=== PATIENT | male | born 1935 | race Caucasian/White ===

== ENCOUNTER 2017-11-11 20:45 | Inpatient (IN) | payer OTHER ==
[~2017-11-11] VITALS: Ht 185.4 cm; Wt 90.0 kg
[~2017-11-11 20:45] MED LIST: ACET325 PO; ALBU2.5V5 NEB; ASCO500 PO; ATOR20 PO; Advair Hfa 115-12 GM INH; BUDE6HFA INH; CALCIT950 PO; CIPR500 PO; CLOP75 PO; COMBIVENT RESPIM4 GM INH; FLUSAL2505 IH; HYDACE5 PO; MULTI VITAMIN1 EACH PO; NATTOKINASE PO; ONDA4 PO; OXYACE5T PO; PHENA200 PO; PRED10; PRED10 PO; Percocet 5-3251 EACH PO; Prednisone20 MG PO; SULTRIDS PO; TAMS.4ER PO; TOCO400 PO; Zofran Odt4 MG SL; [UNRECOGNIZED DRUG - OTHER] PO; [UNRECOGNIZED DRUG - REMARK]
[2017-11-11 23:22] LABS: BASOPHILS ABSOLUTE AUTO 0.01 K/mm3 (0.00-0.23); BASOPHILS PERCENT AUTO 0 % (0-2); EOSINOPHILS ABSOLUTE AUTO 1.24 K/mm3 (0.00-0.68); EOSINOPHILS PERCENT AUTO 10 % (0-6); Hematocrit 35.9 % (37.0-53.0); Hemoglobin 12.5 g/dL (13.5-17.5); IMMATURE GRAN ABSOLUTE AUTO 0.06 K/mm3 (0.00-0.10); IMMATURE GRAN PERCENT AUTO 1 % (0-1); LYMPHOCYTES ABSOLUTE AUTO 0.81 K/mm3 (0.84-5.20); LYMPHOCYTES PERCENT AUTO 6 % (21-46); MONOCYTES ABSOLUTE AUTO 0.53 K/mm3 (0.16-1.47); MONOCYTES PERCENT AUTO 4 % (4-13); Mean Corpuscular HGB 33.5 pg (26.0-34.0); Mean Corpuscular HGB Conc 34.8 g/dL (31.5-36.5); Mean Corpuscular Volume 96 fL (80-100); Mean Platelet Volume 9.3 fL (9.1-12.4); NEUTROPHILS ABSOLUTE AUTO 10.29 K/mm3 (1.96-9.15); NEUTROPHILS PERCENT AUTO 79 % (41-73); Platelet Count 169 K/mm3 (150-400); RDW Coefficient Variation 13.7 % (11.7-14.2); RDW Standard Deviation 48.9 fL (35.1-46.3); Red Blood Cell Count 3.73 M/mm3 (4.30-5.90); White Blood Cell Count 12.94 K/mm3 (4.00-11.30)
[2017-11-11 23:39] LABS: Anion Gap 7 mmol/L (6-16); Blood Urea Nitrogen 14 mg/dL (8-24); CO2, Blood 26 mmol/L (21-32); Chloride, Blood 103 mmol/L (98-108); Creatinine, Blood 0.64 mg/dL (0.60-1.20); Glomerular Filtration Rate >60 (60-); Glucose, Blood 115 mg/dL (70-99); Potassium, Blood 4.1 mmol/L (3.5-5.5); Sodium, Blood 136 mmol/L (136-145)
[2017-11-11 23:41] LABS: International Normalized Ratio 1.04; Prothrombin Time Results 10.8 Sec (9.7-11.5)
[2017-11-12 04:54] LABS: BASOPHILS ABSOLUTE AUTO 0.01 K/mm3 (0.00-0.23); BASOPHILS PERCENT AUTO 0 % (0-2); EOSINOPHILS ABSOLUTE AUTO 1.02 K/mm3 (0.00-0.68); EOSINOPHILS PERCENT AUTO 10 % (0-6); Hematocrit 34.8 % (37.0-53.0); Hemoglobin 11.8 g/dL (13.5-17.5); IMMATURE GRAN ABSOLUTE AUTO 0.04 K/mm3 (0.00-0.10); IMMATURE GRAN PERCENT AUTO 0 % (0-1); LYMPHOCYTES ABSOLUTE AUTO 0.87 K/mm3 (0.84-5.20); LYMPHOCYTES PERCENT AUTO 9 % (21-46); MONOCYTES ABSOLUTE AUTO 0.77 K/mm3 (0.16-1.47); MONOCYTES PERCENT AUTO 8 % (4-13); Mean Corpuscular HGB 32.7 pg (26.0-34.0); Mean Corpuscular HGB Conc 33.9 g/dL (31.5-36.5); Mean Corpuscular Volume 96 fL (80-100); Mean Platelet Volume 9.2 fL (9.1-12.4); NEUTROPHILS ABSOLUTE AUTO 7.43 K/mm3 (1.96-9.15); NEUTROPHILS PERCENT AUTO 73 % (41-73); Platelet Count 174 K/mm3 (150-400); RDW Coefficient Variation 13.7 % (11.7-14.2); RDW Standard Deviation 49.1 fL (35.1-46.3); Red Blood Cell Count 3.61 M/mm3 (4.30-5.90); White Blood Cell Count 10.14 K/mm3 (4.00-11.30)
[2017-11-12 05:13] LABS: Alanine Aminotransfer (ALT/SGP 16 U/L (12-78); Alk Phos 57 U/L (50-136); Anion Gap 7 mmol/L (6-16); Aspartate Aminotrans (AST/SGOT 15 U/L (12-37); Bilirubin, Total 0.9 mg/dL (0.1-1.0); Blood Urea Nitrogen 14 mg/dL (8-24); Bun/Creatinine Ratio 22.2 (12.0-20.0); CO2, Blood 25 mmol/L (21-32); Calcium, Blood 7.9 mg/dL (8.5-10.1); Chloride, Blood 103 mmol/L (98-108); Creatinine, Blood 0.63 mg/dL (0.60-1.20); Globulin, Blood 3.1 g/dL (2.2-4.0); Glomerular Filtration Rate >60 (60-); Glucose, Blood 154 mg/dL (70-99); Potassium, Blood 4.1 mmol/L (3.5-5.5); Sodium, Blood 135 mmol/L (136-145); Total Protein, Blood 6.1 g/dL (6.4-8.2)
[2017-11-14 04:03] LABS: BASOPHILS ABSOLUTE AUTO 0.02 K/mm3 (0.00-0.23); BASOPHILS PERCENT AUTO 0 % (0-2); EOSINOPHILS ABSOLUTE AUTO 0.77 K/mm3 (0.00-0.68); EOSINOPHILS PERCENT AUTO 8 % (0-6); Hematocrit 27.1 % (37.0-53.0); Hemoglobin 9.3 g/dL (13.5-17.5); IMMATURE GRAN ABSOLUTE AUTO 0.08 K/mm3 (0.00-0.10); IMMATURE GRAN PERCENT AUTO 1 % (0-1); LYMPHOCYTES ABSOLUTE AUTO 0.88 K/mm3 (0.84-5.20); LYMPHOCYTES PERCENT AUTO 9 % (21-46); MONOCYTES ABSOLUTE AUTO 1.01 K/mm3 (0.16-1.47); MONOCYTES PERCENT AUTO 11 % (4-13); Mean Corpuscular HGB 32.9 pg (26.0-34.0); Mean Corpuscular HGB Conc 34.3 g/dL (31.5-36.5); Mean Corpuscular Volume 96 fL (80-100); Mean Platelet Volume 9.5 fL (9.1-12.4); NEUTROPHILS PERCENT AUTO 71 % (41-73); Platelet Count 143 K/mm3 (150-400); RDW Coefficient Variation 12.9 % (11.7-14.2); RDW Standard Deviation 45.6 fL (35.1-46.3); Red Blood Cell Count 2.83 M/mm3 (4.30-5.90); White Blood Cell Count 9.56 K/mm3 (4.00-11.30)
[2017-11-14 04:20] LABS: Anion Gap 7 mmol/L (6-16); Blood Urea Nitrogen 15 mg/dL (8-24); Bun/Creatinine Ratio 20.4 (12.0-20.0); CO2, Blood 27 mmol/L (21-32); Calcium, Blood 7.6 mg/dL (8.5-10.1); Chloride, Blood 96 mmol/L (98-108); Creatinine, Blood 0.74 mg/dL (0.60-1.20); Glomerular Filtration Rate >60 (60-); Glucose, Blood 126 mg/dL (70-99); Potassium, Blood 4.8 mmol/L (3.5-5.5); Sodium, Blood 130 mmol/L (136-145)
[2017-11-15 03:52] LABS: BASOPHILS ABSOLUTE AUTO 0.04 K/mm3 (0.00-0.23); BASOPHILS PERCENT AUTO 0 % (0-2); EOSINOPHILS ABSOLUTE AUTO 1.92 K/mm3 (0.00-0.68); EOSINOPHILS PERCENT AUTO 19 % (0-6); Hematocrit 24.6 % (37.0-53.0); Hemoglobin 8.5 g/dL (13.5-17.5); IMMATURE GRAN ABSOLUTE AUTO 0.05 K/mm3 (0.00-0.10); IMMATURE GRAN PERCENT AUTO 1 % (0-1); LYMPHOCYTES ABSOLUTE AUTO 0.95 K/mm3 (0.84-5.20); LYMPHOCYTES PERCENT AUTO 10 % (21-46); MONOCYTES ABSOLUTE AUTO 0.85 K/mm3 (0.16-1.47); MONOCYTES PERCENT AUTO 9 % (4-13); Mean Corpuscular HGB 33.2 pg (26.0-34.0); Mean Corpuscular HGB Conc 34.6 g/dL (31.5-36.5); Mean Corpuscular Volume 96 fL (80-100); Mean Platelet Volume 9.6 fL (9.1-12.4); NEUTROPHILS PERCENT AUTO 62 % (41-73); Platelet Count 161 K/mm3 (150-400); RDW Coefficient Variation 13.1 % (11.7-14.2); RDW Standard Deviation 46.1 fL (35.1-46.3); Red Blood Cell Count 2.56 M/mm3 (4.30-5.90); White Blood Cell Count 9.91 K/mm3 (4.00-11.30)
[2017-11-16 04:12] LABS: BASOPHILS ABSOLUTE AUTO 0.03 K/mm3 (0.00-0.23); BASOPHILS PERCENT AUTO 0 % (0-2); EOSINOPHILS ABSOLUTE AUTO 2.37 K/mm3 (0.00-0.68); EOSINOPHILS PERCENT AUTO 29 % (0-6); Hematocrit 23.5 % (37.0-53.0); Hemoglobin 8.1 g/dL (13.5-17.5); IMMATURE GRAN ABSOLUTE AUTO 0.04 K/mm3 (0.00-0.10); IMMATURE GRAN PERCENT AUTO 1 % (0-1); LYMPHOCYTES ABSOLUTE AUTO 0.98 K/mm3 (0.84-5.20); LYMPHOCYTES PERCENT AUTO 12 % (21-46); MONOCYTES ABSOLUTE AUTO 0.72 K/mm3 (0.16-1.47); MONOCYTES PERCENT AUTO 9 % (4-13); Mean Corpuscular HGB 33.1 pg (26.0-34.0); Mean Corpuscular HGB Conc 34.5 g/dL (31.5-36.5); Mean Corpuscular Volume 96 fL (80-100); Mean Platelet Volume 9.5 fL (9.1-12.4); NEUTROPHILS PERCENT AUTO 49 % (41-73); Platelet Count 166 K/mm3 (150-400); RDW Coefficient Variation 13.2 % (11.7-14.2); RDW Standard Deviation 45.7 fL (35.1-46.3); Red Blood Cell Count 2.45 M/mm3 (4.30-5.90); White Blood Cell Count 8.14 K/mm3 (4.00-11.30)
[2017-11-16 04:35] LABS: Alanine Aminotransfer (ALT/SGP 11 U/L (12-78); Albumin, Blood 2.4 g/dL (3.4-5.0); Albumin/Globulin Ratio 0.8 (0.8-1.8); Alk Phos 40 U/L (50-136); Anion Gap 7 mmol/L (6-16); Aspartate Aminotrans (AST/SGOT 12 U/L (12-37); Bilirubin, Total 0.6 mg/dL (0.1-1.0); Blood Urea Nitrogen 12 mg/dL (8-24); Bun/Creatinine Ratio 17.8 (12.0-20.0); CO2, Blood 28 mmol/L (21-32); Calcium, Blood 7.8 mg/dL (8.5-10.1); Chloride, Blood 96 mmol/L (98-108); Creatinine, Blood 0.67 mg/dL (0.60-1.20); Globulin, Blood 3.1 g/dL (2.2-4.0); Glomerular Filtration Rate >60 (60-); Glucose, Blood 101 mg/dL (70-99); Magnesium, Blood 2.1 mg/dL (1.6-2.4); Phosphorus, Blood 2.5 mg/dL (2.5-4.9); Potassium, Blood 4.1 mmol/L (3.5-5.5); Sodium, Blood 131 mmol/L (136-145); Total Protein, Blood 5.5 g/dL (6.4-8.2)
[2017-11-16 19:23] LABS: Anion Gap 8 mmol/L (6-16); Blood Urea Nitrogen 14 mg/dL (8-24); Bun/Creatinine Ratio 19.9 (12.0-20.0); CO2, Blood 27 mmol/L (21-32); Calcium, Blood 7.9 mg/dL (8.5-10.1); Chloride, Blood 95 mmol/L (98-108); Glomerular Filtration Rate >60 (60-); Glucose, Blood 161 mg/dL (70-99); Magnesium, Blood 1.7 mg/dL (1.6-2.4); Phosphorus, Blood 2.4 mg/dL (2.5-4.9); Sodium, Blood 130 mmol/L (136-145)
[2017-11-17 06:26] LABS: BASOPHILS ABSOLUTE AUTO 0.03 K/mm3 (0.00-0.23); BASOPHILS PERCENT AUTO 0 % (0-2); EOSINOPHILS ABSOLUTE AUTO 2.24 K/mm3 (0.00-0.68); EOSINOPHILS PERCENT AUTO 23 % (0-6); Hemoglobin 8.8 g/dL (13.5-17.5); IMMATURE GRAN ABSOLUTE AUTO 0.08 K/mm3 (0.00-0.10); IMMATURE GRAN PERCENT AUTO 1 % (0-1); LYMPHOCYTES ABSOLUTE AUTO 0.72 K/mm3 (0.84-5.20); LYMPHOCYTES PERCENT AUTO 8 % (21-46); MONOCYTES ABSOLUTE AUTO 0.85 K/mm3 (0.16-1.47); MONOCYTES PERCENT AUTO 9 % (4-13); Mean Corpuscular HGB 32.4 pg (26.0-34.0); Mean Corpuscular HGB Conc 33.8 g/dL (31.5-36.5); Mean Corpuscular Volume 96 fL (80-100); Mean Platelet Volume 9.5 fL (9.1-12.4); NEUTROPHILS ABSOLUTE AUTO 5.73 K/mm3 (1.96-9.15); NEUTROPHILS PERCENT AUTO 59 % (41-73); Platelet Count 184 K/mm3 (150-400); RDW Coefficient Variation 13.9 % (11.7-14.2); RDW Standard Deviation 48.2 fL (35.1-46.3); Red Blood Cell Count 2.72 M/mm3 (4.30-5.90); White Blood Cell Count 9.65 K/mm3 (4.00-11.30)
[2017-11-17 06:42] LABS: Anion Gap 8 mmol/L (6-16); Blood Urea Nitrogen 17 mg/dL (8-24); Bun/Creatinine Ratio 23.5 (12.0-20.0); CO2, Blood 28 mmol/L (21-32); Calcium, Blood 7.8 mg/dL (8.5-10.1); Chloride, Blood 95 mmol/L (98-108); Creatinine, Blood 0.72 mg/dL (0.60-1.20); Glomerular Filtration Rate >60 (60-); Glucose, Blood 102 mg/dL (70-99); Potassium, Blood 3.8 mmol/L (3.5-5.5); Sodium, Blood 131 mmol/L (136-145)
[2017-11-18 04:55] LABS: BASOPHILS ABSOLUTE AUTO 0.05 K/mm3 (0.00-0.23); BASOPHILS PERCENT AUTO 1 % (0-2); EOSINOPHILS ABSOLUTE AUTO 3.18 K/mm3 (0.00-0.68); EOSINOPHILS PERCENT AUTO 30 % (0-6); Hematocrit 26.3 % (37.0-53.0); Hemoglobin 9.1 g/dL (13.5-17.5); IMMATURE GRAN ABSOLUTE AUTO 0.08 K/mm3 (0.00-0.10); IMMATURE GRAN PERCENT AUTO 1 % (0-1); LYMPHOCYTES ABSOLUTE AUTO 0.79 K/mm3 (0.84-5.20); LYMPHOCYTES PERCENT AUTO 8 % (21-46); MONOCYTES ABSOLUTE AUTO 0.71 K/mm3 (0.16-1.47); MONOCYTES PERCENT AUTO 7 % (4-13); Mean Corpuscular HGB 32.9 pg (26.0-34.0); Mean Corpuscular HGB Conc 34.6 g/dL (31.5-36.5); Mean Corpuscular Volume 95 fL (80-100); Mean Platelet Volume 9.3 fL (9.1-12.4); NEUTROPHILS ABSOLUTE AUTO 5.74 K/mm3 (1.96-9.15); NEUTROPHILS PERCENT AUTO 54 % (41-73); Platelet Count 194 K/mm3 (150-400); RDW Coefficient Variation 13.7 % (11.7-14.2); RDW Standard Deviation 46.8 fL (35.1-46.3); Red Blood Cell Count 2.77 M/mm3 (4.30-5.90); White Blood Cell Count 10.55 K/mm3 (4.00-11.30)
[2017-11-18 05:14] LABS: Anion Gap 6 mmol/L (6-16); Blood Urea Nitrogen 18 mg/dL (8-24); Bun/Creatinine Ratio 30.5 (12.0-20.0); CO2, Blood 26 mmol/L (21-32); Calcium, Blood 7.7 mg/dL (8.5-10.1); Chloride, Blood 98 mmol/L (98-108); Creatinine, Blood 0.59 mg/dL (0.60-1.20); Glomerular Filtration Rate >60 (60-); Glucose, Blood 116 mg/dL (70-99); Sodium, Blood 130 mmol/L (136-145)
== END 2017-11-18 14:30 | DRG 481 ==
LOC: ER 20:45 → SURS 21:53
PROVIDERS: Emergency Medicine; Hospitalist; Internal Medicine; Orthopaedic Surgery
PROC: 3E0234Z Introduction of Serum, Toxoid and Vaccine into Muscle, Percutaneous Approach (ICD-10-PCS; 2017-11-12)
PROC: 5A09357 Assistance with Respiratory Ventilation, Less than 24 Consecutive Hours, Continuous Positive Airway Pressure (ICD-10-PCS; 2017-11-12)
PROC: 0QS704Z Reposition Left Upper Femur with Internal Fixation Device, Open Approach (ICD-10-PCS; principal; 2017-11-13 12:30)
PROC: 30233N1 Transfusion of Nonautologous Red Blood Cells into Peripheral Vein, Percutaneous Approach (ICD-10-PCS; 2017-11-16)
DX: S72.302A Unspecified fracture of shaft of left femur, initial encounter for closed fracture (principal); E87.1 Hypo-osmolality and hyponatremia; J44.9 Chronic obstructive pulmonary disease, unspecified; I48.91 Unspecified atrial fibrillation; D62 Acute posthemorrhagic anemia; Z23 Encounter for immunization; Y93.E1 Activity, personal bathing and showering; Y92.002 Bathroom of unspecified non-institutional (private) residence as the place of occurrence of the external cause; W18.2XXA Fall in (into) shower or empty bathtub, initial encounter; K21.9 Gastro-esophageal reflux disease without esophagitis; E78.5 Hyperlipidemia, unspecified; E03.9 Hypothyroidism, unspecified; K59.00 Constipation, unspecified; I49.3 Ventricular premature depolarization; N40.1 Benign prostatic hyperplasia with lower urinary tract symptoms; R33.8 Other retention of urine
CPT/HCPCS: 36415; 36430; 51702; 71045; 73502; 80048; 80053; 83735; 84100; 85025; 85610; 85730; 86850; 86900; 86901; 86923; 93005; 93010; 94060; 94640; 94664; 94667; 94760; 94762; 96374; 96375; 96376; 97110; 97162; 97530; 98960; 99285; 99407; C1713; C1769; G8978; G8979; J0690; J1100; J1170; J1650; J2370; J2405; J3010; J7120; P9016

== ENCOUNTER 2018-01-03 08:20 | Inpatient (IN) | payer OTHER ==
[~2018-01-03] VITALS: Ht 185.4 cm; Wt 83.4 kg
[2018-01-03 09:16] LABS: BASOPHILS ABSOLUTE AUTO 0.02 K/mm3 (0.00-0.23); BASOPHILS PERCENT AUTO 0 % (0-2); EOSINOPHILS ABSOLUTE AUTO 2.26 K/mm3 (0.00-0.68); EOSINOPHILS PERCENT AUTO 27 % (0-6); Hematocrit 37.4 % (37.0-53.0); Hemoglobin 12.3 g/dL (13.5-17.5); IMMATURE GRAN ABSOLUTE AUTO 0.05 K/mm3 (0.00-0.10); IMMATURE GRAN PERCENT AUTO 1 % (0-1); LYMPHOCYTES ABSOLUTE AUTO 0.69 K/mm3 (0.84-5.20); LYMPHOCYTES PERCENT AUTO 8 % (21-46); MONOCYTES ABSOLUTE AUTO 0.42 K/mm3 (0.16-1.47); MONOCYTES PERCENT AUTO 5 % (4-13); Mean Corpuscular HGB 31.9 pg (26.0-34.0); Mean Corpuscular HGB Conc 32.9 g/dL (31.5-36.5); Mean Corpuscular Volume 97 fL (80-100); NEUTROPHILS ABSOLUTE AUTO 4.94 K/mm3 (1.96-9.15); NEUTROPHILS PERCENT AUTO 59 % (41-73); RDW Standard Deviation 50.8 fL (35.1-46.3); Red Blood Cell Count 3.85 M/mm3 (4.30-5.90); White Blood Cell Count 8.38 K/mm3 (4.00-11.30)
[2018-01-03 09:22] LABS: Mean Platelet Volume 9.9 fL (9.1-12.4); Platelet Count 52 K/mm3 (150-400)
[2018-01-03 09:39] LABS: Alanine Aminotransfer (ALT/SGP 15 U/L (12-78); Albumin, Blood 2.8 g/dL (3.4-5.0); Albumin/Globulin Ratio 0.8 (0.8-1.8); Alk Phos 118 U/L (50-136); Anion Gap 11 mmol/L (6-16); Aspartate Aminotrans (AST/SGOT 14 U/L (12-37); Bilirubin, Total 0.7 mg/dL (0.1-1.0); Blood Urea Nitrogen 14 mg/dL (8-24); CO2, Blood 21 mmol/L (21-32); Calcium, Blood 7.6 mg/dL (8.5-10.1); Chloride, Blood 100 mmol/L (98-108); Creatinine, Blood 0.67 mg/dL (0.60-1.20); Globulin, Blood 3.5 g/dL (2.2-4.0); Glomerular Filtration Rate >60 (60-); Glucose, Blood 100 mg/dL (70-99); Sodium, Blood 132 mmol/L (136-145); Total Protein, Blood 6.3 g/dL (6.4-8.2); Troponin I 0.101 ng/mL (0.000-0.040)
[2018-01-03 15:03] LABS: Source, Urine Voided
[2018-01-03 15:13] LABS: Bilirubin, Urine Neg (Neg); Blood, Urine 1+ (Neg); Glucose Qualitative, Urine Neg (Neg); Ketones, Urine 2+ (Neg); Leukocyte Esterase, Urine Neg (Neg); Nitrite, Urine Neg (Neg); Protein, Urine 2+ (Neg); Urobilinogen, Urine NORM (Normal)
[2018-01-03 15:21] LABS: Appearance, Urine Clear (Clear); Color, Urine Yellow (P-Yellow)
[2018-01-03 15:23] LABS: Bacteria Few /hpf; Mucus Light (0-Heavy); Squamous Epithelial Cells Rare /hpf (Few)
[2018-01-03 16:16] LABS: Influenza A Negative (NEGATIVE); Influenza B Positive (NEGATIVE)
[2018-01-04 04:32] LABS: BASOPHILS ABSOLUTE AUTO 0.02 K/mm3 (0.00-0.23); BASOPHILS PERCENT AUTO 0 % (0-2); EOSINOPHILS ABSOLUTE AUTO 0.26 K/mm3 (0.00-0.68); EOSINOPHILS PERCENT AUTO 3 % (0-6); Hematocrit 36.3 % (37.0-53.0); IMMATURE GRAN ABSOLUTE AUTO 0.05 K/mm3 (0.00-0.10); IMMATURE GRAN PERCENT AUTO 1 % (0-1); LYMPHOCYTES ABSOLUTE AUTO 1.04 K/mm3 (0.84-5.20); LYMPHOCYTES PERCENT AUTO 10 % (21-46); MONOCYTES ABSOLUTE AUTO 0.73 K/mm3 (0.16-1.47); MONOCYTES PERCENT AUTO 7 % (4-13); Mean Corpuscular HGB Conc 33.1 g/dL (31.5-36.5); Mean Corpuscular Volume 97 fL (80-100); NEUTROPHILS ABSOLUTE AUTO 8.09 K/mm3 (1.96-9.15); NEUTROPHILS PERCENT AUTO 79 % (41-73); RDW Coefficient Variation 14.1 % (11.7-14.2); RDW Standard Deviation 49.9 fL (35.1-46.3); Red Blood Cell Count 3.75 M/mm3 (4.30-5.90); White Blood Cell Count 10.19 K/mm3 (4.00-11.30)
[2018-01-04 04:36] LABS: Mean Platelet Volume 9.7 fL (9.1-12.4); Platelet Count 153 K/mm3 (150-400)
[2018-01-04 04:51] LABS: Alanine Aminotransfer (ALT/SGP 15 U/L (12-78); Albumin, Blood 2.3 g/dL (3.4-5.0); Albumin/Globulin Ratio 0.6 (0.8-1.8); Alk Phos 94 U/L (50-136); Anion Gap 7 mmol/L (6-16); Aspartate Aminotrans (AST/SGOT 12 U/L (12-37); Bilirubin, Total 0.4 mg/dL (0.1-1.0); Blood Urea Nitrogen 16 mg/dL (8-24); Bun/Creatinine Ratio 26.4 (12.0-20.0); CO2, Blood 24 mmol/L (21-32); CPK Creatine Kinase 122 U/L (39-308); Calcium, Blood 7.5 mg/dL (8.5-10.1); Chloride, Blood 100 mmol/L (98-108); Creatine Kinase MB 0.9 ng/mL (0.0-3.6); Creatine Kinase MB Index 0.7 (0.0-4.0); Creatinine, Blood 0.61 mg/dL (0.60-1.20); Globulin, Blood 3.7 g/dL (2.2-4.0); Glomerular Filtration Rate >60 (60-); Glucose, Blood 126 mg/dL (70-99); Potassium, Blood 4.3 mmol/L (3.5-5.5); Sodium, Blood 131 mmol/L (136-145); Troponin I 0.072 ng/mL (0.000-0.040)
[2018-01-05 05:32] LABS: BASOPHILS ABSOLUTE AUTO 0.02 K/mm3 (0.00-0.23); BASOPHILS PERCENT AUTO 0 % (0-2); EOSINOPHILS ABSOLUTE AUTO 0.03 K/mm3 (0.00-0.68); EOSINOPHILS PERCENT AUTO 0 % (0-6); Hemoglobin 11.2 g/dL (13.5-17.5); IMMATURE GRAN ABSOLUTE AUTO 0.13 K/mm3 (0.00-0.10); IMMATURE GRAN PERCENT AUTO 1 % (0-1); LYMPHOCYTES ABSOLUTE AUTO 0.84 K/mm3 (0.84-5.20); LYMPHOCYTES PERCENT AUTO 8 % (21-46); MONOCYTES ABSOLUTE AUTO 0.75 K/mm3 (0.16-1.47); MONOCYTES PERCENT AUTO 7 % (4-13); Mean Corpuscular HGB 32.7 pg (26.0-34.0); Mean Corpuscular HGB Conc 33.9 g/dL (31.5-36.5); Mean Corpuscular Volume 97 fL (80-100); Mean Platelet Volume 10.3 fL (9.1-12.4); NEUTROPHILS ABSOLUTE AUTO 8.35 K/mm3 (1.96-9.15); NEUTROPHILS PERCENT AUTO 83 % (41-73); Platelet Count 150 K/mm3 (150-400); RDW Coefficient Variation 14.2 % (11.7-14.2); RDW Standard Deviation 50.4 fL (35.1-46.3); Red Blood Cell Count 3.42 M/mm3 (4.30-5.90); White Blood Cell Count 10.12 K/mm3 (4.00-11.30)
[2018-01-05 05:53] LABS: Albumin, Blood 2.1 g/dL (3.4-5.0); Anion Gap 7 mmol/L (6-16); Blood Urea Nitrogen 20 mg/dL (8-24); Bun/Creatinine Ratio 35.7 (12.0-20.0); CO2, Blood 24 mmol/L (21-32); Calcium, Blood 7.6 mg/dL (8.5-10.1); Chloride, Blood 100 mmol/L (98-108); Creatinine, Blood 0.56 mg/dL (0.60-1.20); Glomerular Filtration Rate >60 (60-); Glucose, Blood 103 mg/dL (70-99); Phosphorus, Blood 2.2 mg/dL (2.5-4.9); Potassium, Blood 4.7 mmol/L (3.5-5.5); Sodium, Blood 131 mmol/L (136-145)
[2018-01-06 04:46] LABS: Albumin, Blood 1.9 g/dL (3.4-5.0); Anion Gap 8 mmol/L (6-16); Blood Urea Nitrogen 18 mg/dL (8-24); Bun/Creatinine Ratio 36.5 (12.0-20.0); CO2, Blood 22 mmol/L (21-32); Calcium, Blood 7.3 mg/dL (8.5-10.1); Chloride, Blood 101 mmol/L (98-108); Creatinine, Blood 0.49 mg/dL (0.60-1.20); Glomerular Filtration Rate >60 (60-); Glucose, Blood 136 mg/dL (70-99); Phosphorus, Blood 1.5 mg/dL (2.5-4.9); Potassium, Blood 3.9 mmol/L (3.5-5.5); Sodium, Blood 131 mmol/L (136-145); Troponin I 0.022 ng/mL (0.000-0.040)
[2018-01-07 04:55] LABS: BASOPHILS ABSOLUTE AUTO 0.04 K/mm3 (0.00-0.23); BASOPHILS PERCENT AUTO 0 % (0-2); EOSINOPHILS ABSOLUTE AUTO 0.21 K/mm3 (0.00-0.68); EOSINOPHILS PERCENT AUTO 2 % (0-6); Hematocrit 31.9 % (37.0-53.0); Hemoglobin 11.1 g/dL (13.5-17.5); IMMATURE GRAN ABSOLUTE AUTO 0.08 K/mm3 (0.00-0.10); IMMATURE GRAN PERCENT AUTO 1 % (0-1); LYMPHOCYTES ABSOLUTE AUTO 0.81 K/mm3 (0.84-5.20); LYMPHOCYTES PERCENT AUTO 9 % (21-46); MONOCYTES ABSOLUTE AUTO 1.09 K/mm3 (0.16-1.47); MONOCYTES PERCENT AUTO 12 % (4-13); Mean Corpuscular HGB 31.9 pg (26.0-34.0); Mean Corpuscular HGB Conc 34.8 g/dL (31.5-36.5); Mean Platelet Volume 10.1 fL (9.1-12.4); NEUTROPHILS ABSOLUTE AUTO 7.12 K/mm3 (1.96-9.15); NEUTROPHILS PERCENT AUTO 76 % (41-73); Platelet Count 204 K/mm3 (150-400); RDW Coefficient Variation 14.1 % (11.7-14.2); RDW Standard Deviation 47.5 fL (35.1-46.3); Red Blood Cell Count 3.48 M/mm3 (4.30-5.90); White Blood Cell Count 9.35 K/mm3 (4.00-11.30)
[2018-01-07 05:00] LABS: Mean Corpuscular Volume 92 fL (80-100)
[2018-01-07 05:21] LABS: Alanine Aminotransfer (ALT/SGP 34 U/L (12-78); Albumin, Blood 1.9 g/dL (3.4-5.0); Albumin/Globulin Ratio 0.5 (0.8-1.8); Alk Phos 80 U/L (50-136); Anion Gap 8 mmol/L (6-16); Aspartate Aminotrans (AST/SGOT 53 U/L (12-37); Bilirubin, Total 0.7 mg/dL (0.1-1.0); Blood Urea Nitrogen 17 mg/dL (8-24); Bun/Creatinine Ratio 33.2 (12.0-20.0); CO2, Blood 22 mmol/L (21-32); Calcium, Blood 7.4 mg/dL (8.5-10.1); Chloride, Blood 99 mmol/L (98-108); Creatinine, Blood 0.51 mg/dL (0.60-1.20); Globulin, Blood 3.9 g/dL (2.2-4.0); Glomerular Filtration Rate >60 (60-); Glucose, Blood 117 mg/dL (70-99); Magnesium, Blood 1.8 mg/dL (1.6-2.4); Potassium, Blood 4.1 mmol/L (3.5-5.5); Sodium, Blood 129 mmol/L (136-145); Total Protein, Blood 5.8 g/dL (6.4-8.2)
[2018-01-08 05:05] LABS: Hematocrit 31.1 % (37.0-53.0); Hemoglobin 10.8 g/dL (13.5-17.5); Mean Corpuscular HGB 31.9 pg (26.0-34.0); Mean Corpuscular HGB Conc 34.7 g/dL (31.5-36.5); Mean Corpuscular Volume 92 fL (80-100); Mean Platelet Volume 9.9 fL (9.1-12.4); Platelet Count 234 K/mm3 (150-400); RDW Standard Deviation 47.7 fL (35.1-46.3); Red Blood Cell Count 3.39 M/mm3 (4.30-5.90); White Blood Cell Count 8.95 K/mm3 (4.00-11.30)
[2018-01-08 05:33] LABS: Anion Gap 8 mmol/L (6-16); Blood Urea Nitrogen 15 mg/dL (8-24); Bun/Creatinine Ratio 27.1 (12.0-20.0); CO2, Blood 23 mmol/L (21-32); Calcium, Blood 7.6 mg/dL (8.5-10.1); Chloride, Blood 97 mmol/L (98-108); Creatinine, Blood 0.55 mg/dL (0.60-1.20); Glomerular Filtration Rate >60 (60-); Glucose, Blood 116 mg/dL (70-99); Potassium, Blood 4.1 mmol/L (3.5-5.5); Sodium, Blood 128 mmol/L (136-145)
[2018-01-09 05:32] LABS: Albumin, Blood 1.9 g/dL (3.4-5.0); Anion Gap 8 mmol/L (6-16); Blood Urea Nitrogen 14 mg/dL (8-24); Bun/Creatinine Ratio 26.8 (12.0-20.0); CO2, Blood 23 mmol/L (21-32); Calcium, Blood 7.6 mg/dL (8.5-10.1); Chloride, Blood 97 mmol/L (98-108); Creatinine, Blood 0.52 mg/dL (0.60-1.20); Glomerular Filtration Rate >60 (60-); Glucose, Blood 121 mg/dL (70-99); Phosphorus, Blood 3.2 mg/dL (2.5-4.9); Sodium, Blood 128 mmol/L (136-145)
[2018-01-09] MEDS ORDERED: DULERA 200 MCG/13 GM INH (11:40)
[2018-01-09] MEDS ORDERED: DOCU100 PO (11:40)
[2018-01-09] MEDS ORDERED: HYDR1TAB94 PO (11:41)
[2018-01-09] MEDS ORDERED: GUAI600T33 PO (11:41)
[2018-01-09] MEDS ORDERED: METO25ER PO (11:42)
[2018-01-09] MEDS ORDERED: ALBU3IS INH (11:42)
[2018-01-09] MEDS ORDERED: Synthroid25 MCG PO (11:42)
[2018-01-09] MEDS ORDERED: Milk Of Ma400 MG/5 M PO (11:44)
[2018-01-09] MEDS ORDERED: XARELTO20 MG PO (11:44)
[2018-01-09] MEDS ORDERED: LEVO750 PO (11:44)
== END 2018-01-09 13:55 | disposition home or self-care (01) | DRG 193 ==
LOC: ER 08:20 → MEDS 10:38
PROVIDERS: Emergency Medicine; Family Medicine; Internal Medicine; Internal Medicine Endocrinology, Diabetes & Metabolism; Student in an Organized Health Care Education/Training Program
PROC: 5A09457 Assistance with Respiratory Ventilation, 24-96 Consecutive Hours, Continuous Positive Airway Pressure (ICD-10-PCS; principal; 2018-01-03)
DX: J11.00 Influenza due to unidentified influenza virus with unspecified type of pneumonia (principal); R53.2 Functional quadriplegia; D69.6 Thrombocytopenia, unspecified; I48.0 Paroxysmal atrial fibrillation; J44.1 Chronic obstructive pulmonary disease with (acute) exacerbation; E03.9 Hypothyroidism, unspecified; E78.5 Hyperlipidemia, unspecified; J18.9 Pneumonia, unspecified organism; F17.211 Nicotine dependence, cigarettes, in remission; G47.33 Obstructive sleep apnea (adult) (pediatric); K21.9 Gastro-esophageal reflux disease without esophagitis; M19.90 Unspecified osteoarthritis, unspecified site
CPT/HCPCS: 36415; 71046; 71250; 80048; 80053; 80069; 81001; 82533; 82550; 82553; 83605; 83735; 83880; 84100; 84300; 84443; 84484; 85025; 85027; 87040; 87804; 92610; 93005; 93010; 93306; 94640; 94760; 94762; 97116; 97162; 97530; 99285; G8978; G8979; G8996; G8997; G8998; J0696; J1650; J1956; J3480; J7030; J7060

== ENCOUNTER → 2018-04-15 | Outpatient (CLI) | payer OTHER ==
[~2018-04-15] MED LIST changes: +ALBU3IS INH; +DOCU100 PO; +DULERA 200 MCG/13 GM INH; +GUAI600T33 PO; +HYDR1TAB94 PO; +LEVO750 PO; +METO25ER PO; +Milk Of Ma400 MG/5 M PO; +Synthroid25 MCG PO; +XARELTO20 MG PO
== END ==
LOC: LAB SHORT 10:00
DX: D72.1 Eosinophilia (principal)

== ENCOUNTER 2019-01-15 18:03 | Inpatient (IN) | payer MEDICARE ==
[~2019-01-15] VITALS: Ht 182.9 cm; Wt 84.1 kg
[2019-01-15 19:08] LABS: BASOPHILS ABSOLUTE AUTO 0.01 K/mm3 (0.00-0.23); BASOPHILS PERCENT AUTO 0 % (0-2); EOSINOPHILS ABSOLUTE AUTO 0.35 K/mm3 (0.00-0.68); EOSINOPHILS PERCENT AUTO 8 % (0-6); Hematocrit 37.3 % (37.0-53.0); Hemoglobin 13.1 g/dL (13.5-17.5); IMMATURE GRAN ABSOLUTE AUTO 0.02 K/mm3 (0.00-0.10); IMMATURE GRAN PERCENT AUTO 0 % (0-1); LYMPHOCYTES ABSOLUTE AUTO 0.32 K/mm3 (0.84-5.20); LYMPHOCYTES PERCENT AUTO 7 % (21-46); MONOCYTES ABSOLUTE AUTO 0.47 K/mm3 (0.16-1.47); MONOCYTES PERCENT AUTO 10 % (4-13); Mean Corpuscular HGB 32.8 pg (26.0-34.0); Mean Corpuscular HGB Conc 35.1 g/dL (31.5-36.5); Mean Corpuscular Volume 93 fL (80-100); Mean Platelet Volume 9.5 fL (9.1-12.4); NEUTROPHILS ABSOLUTE AUTO 3.42 K/mm3 (1.96-9.15); NEUTROPHILS PERCENT AUTO 75 % (41-73); Platelet Count 184 K/mm3 (150-400); RDW Coefficient Variation 13.8 % (11.7-14.2); RDW Standard Deviation 46.5 fL (35.1-46.3); White Blood Cell Count 4.59 K/mm3 (4.00-11.30)
[2019-01-15 19:47] LABS: Alanine Aminotransfer (ALT/SGP 17 U/L (12-78); Albumin, Blood 3.3 g/dL (3.4-5.0); Albumin/Globulin Ratio 0.9 (0.8-1.8); Alk Phos 75 U/L (50-136); Anion Gap 9 mmol/L (6-16); Aspartate Aminotrans (AST/SGOT 17 U/L (12-37); Bilirubin, Total 0.5 mg/dL (0.1-1.0); Blood Urea Nitrogen 10 mg/dL (8-24); Bun/Creatinine Ratio 18.7 (12.0-20.0); CO2, Blood 22 mmol/L (21-32); Calcium, Blood 8.1 mg/dL (8.5-10.1); Chloride, Blood 93 mmol/L (98-108); Creatinine, Blood 0.54 mg/dL (0.60-1.20); Globulin, Blood 3.8 g/dL (2.2-4.0); Glomerular Filtration Rate >60 (60-); Glucose, Blood 104 mg/dL (70-99); Potassium, Blood 4.2 mmol/L (3.5-5.5); Sodium, Blood 124 mmol/L (136-145); Total Protein, Blood 7.1 g/dL (6.4-8.2)
[2019-01-15 20:36] LABS: Source, Urine Clean Catch
[2019-01-15 20:38] LABS: Bilirubin, Urine Neg (Neg); Blood, Urine 2+ (Neg); Glucose Qualitative, Urine Neg (Neg); Ketones, Urine Neg (Neg); Leukocyte Esterase, Urine Neg (Neg); Nitrite, Urine Neg (Neg); Protein, Urine Neg (Neg); Urobilinogen, Urine NORM (Normal)
[2019-01-15 20:48] LABS: Appearance, Urine Hazy (Clear); Color, Urine Yellow (P-Yellow)
[2019-01-15 20:49] LABS: Squamous Epithelial Cells Not Seen /hpf (Few)
[2019-01-15 20:50] LABS: Bacteria Few /hpf; White Blood Cells, Urine Not Seen /hpf (0-5)
[2019-01-15 22:23] LABS: Influenza A Positive (NEGATIVE); Influenza B Negative (NEGATIVE)
--- NOTE | 2019-01-16 04:27 | NUR ---
SHIFT SUMMARY PT NEW ED ADMIT THIS EVENING. ALERT AND ORIENTED. ANSWERED ALL QUESTIONS APPROPRIATELY. PT OVERALL NOT FEELING WELL. ELEVATED TEMPERATURE AT 100.6 DEG F WHEN FIRST ARRIVING TO MEDICAL FLOOR. 1000 MG TYLENOL GIVEN DOWN IN ED. NO FURTHER GIVEN. TEMPERATURE DOWN TO 99.0 DEG F THIS AM. VSS. PT'S LUNGS COARSE THROUGHOUT. LOOSE COUGH, HOWEVER NO SPUTUM SAMPLE COLLECTED YET. PT GIVEN ROBITUSSIN BUT IMMEDIATELY AFTER VOMITED IT UP. PT FELT NO NAUSEA BEFORE OR AFTER EPISODE. SHEARER CATHETER PLACED IN ED, PATENT AND DRAINING DARK YELLOW URINE. PT FEELING VERY WEAK, REPORTING THAT THIS HAD BEEN INCREASING AT HOME AND THAT BEFORE COMING TO ED PT WAS UNABLE TO GET OUT OF BED. PT HAS REMAINED IN BED THROUGHOUT THIS SHIFT. REPOSITIONED PT NEEDED. NO BM SO FAR THIS SHIFT. PT INFLUENZA A POSITIVE, PLACED IN DROPLET PRECAUTION. PT RESTING IN BED AT THIS TIME. WILL CONTINUE TO MONITOR.
[2019-01-16 05:29] LABS: Hematocrit 33.3 % (37.0-53.0); Hemoglobin 11.8 g/dL (13.5-17.5); Mean Corpuscular HGB Conc 35.4 g/dL (31.5-36.5); Mean Corpuscular Volume 93 fL (80-100); Mean Platelet Volume 9.2 fL (9.1-12.4); Platelet Count 158 K/mm3 (150-400); RDW Coefficient Variation 13.9 % (11.7-14.2); RDW Standard Deviation 47.1 fL (35.1-46.3); Red Blood Cell Count 3.58 M/mm3 (4.30-5.90); White Blood Cell Count 5.48 K/mm3 (4.00-11.30)
[2019-01-16 06:02] LABS: Alanine Aminotransfer (ALT/SGP 13 U/L (12-78); Albumin, Blood 2.9 g/dL (3.4-5.0); Albumin/Globulin Ratio 0.9 (0.8-1.8); Alk Phos 61 U/L (50-136); Anion Gap 10 mmol/L (6-16); Aspartate Aminotrans (AST/SGOT 16 U/L (12-37); Bilirubin, Total 0.4 mg/dL (0.1-1.0); Blood Urea Nitrogen 13 mg/dL (8-24); Bun/Creatinine Ratio 23.6 (12.0-20.0); CO2, Blood 21 mmol/L (21-32); Calcium, Blood 7.5 mg/dL (8.5-10.1); Chloride, Blood 96 mmol/L (98-108); Creatinine, Blood 0.55 mg/dL (0.60-1.20); Globulin, Blood 3.3 g/dL (2.2-4.0); Glomerular Filtration Rate >60 (60-); Glucose, Blood 99 mg/dL (70-99); Potassium, Blood 3.8 mmol/L (3.5-5.5); Sodium, Blood 127 mmol/L (136-145); Total Protein, Blood 6.2 g/dL (6.4-8.2)
--- NOTE | 2019-01-16 18:25 | NUR ---
SHIFT SUMMARY PT HAS HAD NO ACUTE CHANGES THIS SHIFT, WAS UP TO CHAIR FOR BREAKFAST THEN BECAME NAUSEATED, RETURNED TO BED AND SLEPT FOR SEVERAL HOURS. MEDICATED FOR FOR NAUSEA X1, NO OTHER COMPLAINTS. BEDRESTING AT THIS TIME, WILL CONT TO MONITOR UNTIL REPORT GIVEN TO ELVI RN.
--- NOTE | 2019-01-17 04:49 | NUR ---
SHIFT SUMMARY A/O, ABLE TO MAKE NEEDS KNOWN. COOPERATIVE WITH CARE. ANSWERS QUESTIONS APPROPRIATELY. C/O COUGH; MEDICATED PER EMAR. DENIES PAIN/DISCOMFORT. REPORTED WEAKNESS T/O. COARSE RESPIRATIONS T/O ALL SCOTT; DIMINISHED TO THE R. RESPIRATIONS EVEN WITH EQUAL RISE/FALL. O2 SATURATION >90%. SHEARER SECURE AND PATENT. NO ACUTE CHANGES OVERNIGHT. BED IN LOWEST POSITION. ALARM ON. CALL LIGHT AND BELONGINGS WITHIN REACH. WCTM. REPORT TO ONCOMING RN.
[2019-01-17 04:58] LABS: BASOPHILS ABSOLUTE AUTO 0.01 K/mm3 (0.00-0.23); BASOPHILS PERCENT AUTO 0 % (0-2); EOSINOPHILS PERCENT AUTO 0 % (0-6); Hematocrit 35.4 % (37.0-53.0); Hemoglobin 12.2 g/dL (13.5-17.5); IMMATURE GRAN ABSOLUTE AUTO 0.04 K/mm3 (0.00-0.10); IMMATURE GRAN PERCENT AUTO 1 % (0-1); LYMPHOCYTES ABSOLUTE AUTO 0.33 K/mm3 (0.84-5.20); LYMPHOCYTES PERCENT AUTO 9 % (21-46); MONOCYTES ABSOLUTE AUTO 0.11 K/mm3 (0.16-1.47); MONOCYTES PERCENT AUTO 3 % (4-13); Mean Corpuscular HGB 32.8 pg (26.0-34.0); Mean Corpuscular HGB Conc 34.5 g/dL (31.5-36.5); Mean Corpuscular Volume 95 fL (80-100); Mean Platelet Volume 9.8 fL (9.1-12.4); NEUTROPHILS ABSOLUTE AUTO 3.39 K/mm3 (1.96-9.15); NEUTROPHILS PERCENT AUTO 87 % (41-73); Platelet Count 156 K/mm3 (150-400); RDW Coefficient Variation 13.7 % (11.7-14.2); RDW Standard Deviation 48.5 fL (35.1-46.3); Red Blood Cell Count 3.72 M/mm3 (4.30-5.90); White Blood Cell Count 3.88 K/mm3 (4.00-11.30)
[2019-01-17 05:34] LABS: Alanine Aminotransfer (ALT/SGP 18 U/L (12-78); Anion Gap 10 mmol/L (6-16); Aspartate Aminotrans (AST/SGOT 13 U/L (12-37); Blood Urea Nitrogen 16 mg/dL (8-24); CO2, Blood 21 mmol/L (21-32); Calcium, Blood 7.7 mg/dL (8.5-10.1); Chloride, Blood 97 mmol/L (98-108); Creatinine, Blood 0.52 mg/dL (0.60-1.20); Glomerular Filtration Rate >60 (60-); Glucose, Blood 144 mg/dL (70-99); Phosphorus, Blood 3.2 mg/dL (2.5-4.9); Potassium, Blood 4.4 mmol/L (3.5-5.5); Sodium, Blood 128 mmol/L (136-145); Uric Acid, Blood 4.3 mg/dL (3.5-7.2)
[2019-01-17 05:45] LABS: Albumin/Globulin Ratio 0.9 (0.8-1.8); Alk Phos 59 U/L (50-136); Bilirubin, Total 0.5 mg/dL (0.1-1.0); Globulin, Blood 3.5 g/dL (2.2-4.0); Total Protein, Blood 6.5 g/dL (6.4-8.2)
[2019-01-17 06:19] LABS: Osmolality, Serum 266 mos/KG (275-300)
--- NOTE | 2019-01-17 12:28 | NUR ---
PT AMBULATION- PT WAS ASSISTED TO STAND THIS MORNING, STATED HE WANTED TO GO INTO THE BATHROOM. ASSISTED PT WITH 2 STAFF TO THE BATHROOM, THEN 1PA TO THE SHOWER, PT RECIEVED A FULL SHOWER AND WAS ASSISTED 1PA BACK TO THE CHAIR IN HIS ROOM. PHYSICAL THERAPY SAW THE PT AFTER THIS AND STATED HE IS AT HIS BASELINE AT THIS TIME, WILL CT. PT STATED HE IS FEELING A LITTLE BETTER TODAY.
--- NOTE | 2019-01-17 19:46 | NUR ---
SHIFT SUMMARY- PT HAS HAD NO ACUTE CHANGES T/O THE SHIFT. SEEMS TO BE IMPROVING VERY WELL WITH TREATMENT, PER DR PENA DC HOME EARLY TOMORROW.
--- NOTE | 2019-01-18 04:01 | NUR ---
SHIFT SUMMARY A/O, ABLE TO MAKE NEEDS KNOWN. COOPERATIVE WITH CARE. CALLS AND ANSWERS QUESTIONS APPROPRIATELY. DENIES PAIN/DISCOMFORT. DID NOT APPEAR TO REST MUCH T/O SHIFT; STATED MAYBE AN HOUR. R/T ALARM FROM IV ABX/CONT. BIOX. DR. SCHNEIDER ALSO IN TO VISIT PATIENT AROUND OOOO. HYPERTENSIVE THIS AM; WILL RE-CHECK. CONTINUES WITH URINAL USE WITHOUT COMPLICATION. NO OTHER ACUTE CHANGES NOTED OVERNIGHT. BED IN LOWEST POSITION. ALARM ON. CALL LIGHT AND BELONGINGS WITHIN REACH. WCTM. REPORT TO ONCOMING RN.
[2019-01-18 04:55] LABS: BASOPHILS ABSOLUTE AUTO 0.02 K/mm3 (0.00-0.23); BASOPHILS PERCENT AUTO 1 % (0-2); EOSINOPHILS ABSOLUTE AUTO 0.01 K/mm3 (0.00-0.68); EOSINOPHILS PERCENT AUTO 0 % (0-6); Hematocrit 35.4 % (37.0-53.0); Hemoglobin 12.1 g/dL (13.5-17.5); IMMATURE GRAN ABSOLUTE AUTO 0.04 K/mm3 (0.00-0.10); IMMATURE GRAN PERCENT AUTO 1 % (0-1); LYMPHOCYTES ABSOLUTE AUTO 0.76 K/mm3 (0.84-5.20); LYMPHOCYTES PERCENT AUTO 18 % (21-46); MONOCYTES PERCENT AUTO 14 % (4-13); Mean Corpuscular HGB 32.6 pg (26.0-34.0); Mean Corpuscular HGB Conc 34.2 g/dL (31.5-36.5); Mean Corpuscular Volume 95 fL (80-100); Mean Platelet Volume 9.3 fL (9.1-12.4); NEUTROPHILS ABSOLUTE AUTO 2.92 K/mm3 (1.96-9.15); NEUTROPHILS PERCENT AUTO 67 % (41-73); Platelet Count 179 K/mm3 (150-400); RDW Coefficient Variation 13.9 % (11.7-14.2); Red Blood Cell Count 3.71 M/mm3 (4.30-5.90); White Blood Cell Count 4.35 K/mm3 (4.00-11.30)
[2019-01-18 05:09] LABS: Anion Gap 8 mmol/L (6-16); Blood Urea Nitrogen 16 mg/dL (8-24); Bun/Creatinine Ratio 31.2 (12.0-20.0); CO2, Blood 26 mmol/L (21-32); Calcium, Blood 7.9 mg/dL (8.5-10.1); Chloride, Blood 98 mmol/L (98-108); Creatinine, Blood 0.51 mg/dL (0.60-1.20); Glomerular Filtration Rate >60 (60-); Glucose, Blood 96 mg/dL (70-99); Magnesium, Blood 1.9 mg/dL (1.6-2.4); Phosphorus, Blood 2.2 mg/dL (2.5-4.9); Potassium, Blood 3.6 mmol/L (3.5-5.5); Sodium, Blood 132 mmol/L (136-145)
--- NOTE | 2019-01-18 07:29 | NUR ---
ASSUMED CARE OF PT- BEDSIDE REPORT COMPLETE WITH NIGHT IFEOMA FAULKNER. PT AWAKE ALERT AND ORIENTED. SOME LAB CHANGES WERE NOTED DURRING REPORT WILL REVIEW MORE THOUROUGHLY AFTER ASSESSMENT.
[2019-01-18] MEDS ORDERED: LEVFLO500 PO ×2 (11:30)
[2019-01-18] MEDS ORDERED: FURO20 PO ×2 (11:30)
[2019-01-18] MEDS ORDERED: POTCHL10ER PO ×2 (11:31)
[2019-01-18] MEDS ORDERED: OSEL75CA PO ×2 (11:31)
[2019-01-18] MEDS ORDERED: SODCHL1 PO ×2 (11:32)
[2019-01-18] MEDS ORDERED: PRED10 PO ×2 (11:36)
[2019-01-18] MEDS ORDERED: Synthroid25 MCG PO ×2 (11:36)
--- NOTE | 2019-01-18 14:13 | NUR ---
DISCHARGE NOTE- PT DISCHARGED HOME. SPOUSE PRESENT FOR DISCHARGE TEACHING. NO FURTHER QUESTIONS AT THE TIME OF DISCHARGE. MEDS FAXED TO [facility] PER PT REQUEST. CONTACT INFORMATION PROVIDED IN THE EVENT THAT QUESTIONS SHOULD ARRISE.
== END 2019-01-18 12:26 | disposition home or self-care (01) | DRG 194 ==
LOC: ER 18:03 → MEDS 22:39
PROVIDERS: Emergency Medicine; Hospitalist; Internal Medicine Nephrology; ADMIT Internal Medicine
DX: J10.1 Influenza due to other identified influenza virus with other respiratory manifestations (principal); J44.0 Chronic obstructive pulmonary disease with (acute) lower respiratory infection; E87.1 Hypo-osmolality and hyponatremia; E24.9 Cushing's syndrome, unspecified; Z51.5 Encounter for palliative care; I48.91 Unspecified atrial fibrillation; K21.9 Gastro-esophageal reflux disease without esophagitis; E03.9 Hypothyroidism, unspecified; E78.5 Hyperlipidemia, unspecified; Z86.73 Personal history of transient ischemic attack (TIA), and cerebral infarction without residual deficits; Z66 Do not resuscitate; E83.39 Other disorders of phosphorus metabolism; N18.2 Chronic kidney disease, stage 2 (mild); D63.1 Anemia in chronic kidney disease; E88.09 Other disorders of plasma-protein metabolism, not elsewhere classified
CPT/HCPCS: 36415; 51702; 71046; 80053; 80069; 81001; 82533; 83605; 83735; 83880; 83930; 84100; 84145; 84443; 84550; 85014; 85018; 85025; 85027; 87040; 87804; 92526; 92610; 93005; 93010; 94640; 94667; 94760; 96361; 96365; 97110; 97161; 97530; 99285-25; J1650; J1956; J2405; J2920; J2930; J7030; J7060

== ENCOUNTER → 2019-01-28 | Outpatient (CLI) | payer MEDICARE ==
[~2019-01-28] MED LIST changes: +FURO20 PO; +LEVFLO500 PO; +OSEL75CA PO; +POTCHL10ER PO; +SODCHL1 PO
[2019-01-28 09:50] LABS: Creatinine Urine 32.7 mg/dL (27.00-270.00); Protein, Urine Quantitative 12.2 mg/dL (0.0-11.9)
[2019-01-28 09:53] LABS: Microalbumin, Urine Quant. 11.6 mg/L (0.000-20.000)
== END | disposition home or self-care (01) ==
LOC: LAB 08:00 → LAB SHORT 08:00
PROVIDERS: Internal Medicine Nephrology
DX: N18.2 Chronic kidney disease, stage 2 (mild) (principal); D63.1 Anemia in chronic kidney disease; N25.81 Secondary hyperparathyroidism of renal origin; E55.9 Vitamin D deficiency, unspecified; E78.00 Pure hypercholesterolemia, unspecified; R76.9 Abnormal immunological finding in serum, unspecified; R94.5 Abnormal results of liver function studies; G60.9 Hereditary and idiopathic neuropathy, unspecified
CPT/HCPCS: 81050; 82043; 82570; 84156

== ENCOUNTER 2020-01-09 18:02 | Inpatient (IN) | payer MEDICARE ==
[~2020-01-09] VITALS: Ht 185.4 cm; Wt 85.7 kg
[2020-01-09 18:58] LABS: BASOPHILS ABSOLUTE AUTO 0.03 K/mm3 (0.00-0.23); BASOPHILS PERCENT AUTO 0 % (0-2); EOSINOPHILS ABSOLUTE AUTO 0.23 K/mm3 (0.00-0.68); EOSINOPHILS PERCENT AUTO 3 % (0-6); Hematocrit 39.9 % (37.0-53.0); Hemoglobin 13.7 g/dL (13.5-17.5); IMMATURE GRAN ABSOLUTE AUTO 0.04 K/mm3 (0.00-0.10); IMMATURE GRAN PERCENT AUTO 1 % (0-1); LYMPHOCYTES ABSOLUTE AUTO 0.37 K/mm3 (0.84-5.20); LYMPHOCYTES PERCENT AUTO 5 % (21-46); MONOCYTES ABSOLUTE AUTO 0.44 K/mm3 (0.16-1.47); MONOCYTES PERCENT AUTO 6 % (4-13); Mean Corpuscular HGB 32.6 pg (26.0-34.0); Mean Corpuscular HGB Conc 34.3 g/dL (31.5-36.5); Mean Corpuscular Volume 95 fL (80-100); Mean Platelet Volume 10.5 fL (9.1-12.4); NEUTROPHILS ABSOLUTE AUTO 6.03 K/mm3 (1.96-9.15); NEUTROPHILS PERCENT AUTO 84 % (41-73); Platelet Count 151 K/mm3 (150-400); RDW Coefficient Variation 14.3 % (11.7-14.2); RDW Standard Deviation 50.1 fL (35.1-46.3); White Blood Cell Count 7.14 K/mm3 (4.00-11.30)
[2020-01-09 19:25] LABS: Alanine Aminotransfer (ALT/SGP 14 U/L (12-78); Albumin, Blood 3.5 g/dL (3.4-5.0); Albumin/Globulin Ratio 0.9 (0.8-1.8); Alk Phos 67 U/L (50-136); Anion Gap 4 mmol/L (6-16); Aspartate Aminotrans (AST/SGOT 16 U/L (12-37); Bilirubin, Total 0.6 mg/dL (0.1-1.0); Blood Urea Nitrogen 14 mg/dL (8-24); Bun/Creatinine Ratio 21.4 (12.0-20.0); CO2, Blood 24 mmol/L (21-32); Calcium, Blood 8.6 mg/dL (8.5-10.1); Chloride, Blood 100 mmol/L (98-108); Creatinine, Blood 0.65 mg/dL (0.60-1.20); Globulin, Blood 3.9 g/dL (2.2-4.0); Glomerular Filtration Rate >60 (60-); Glucose, Blood 114 mg/dL (70-99); Sodium, Blood 128 mmol/L (136-145); Total Protein, Blood 7.4 g/dL (6.4-8.2)
[2020-01-09 21:05] LABS: Base Excess Venous -1.5 mmol/L; Bicarbonate Venous 22.9 mmol/L (24.0-30.0); PCO2 Venous 41.1 mmHg (38-42); PO2 Venous 57.9 mmHg (38-42); pH Blood Venous 7.37 (7.34-7.37)
[2020-01-09 22:48] LABS: Adenovirus Not Detected (NOT DETECT); Bordetella pertussis Not Detected (NOT DETECT); Chlamydophila pneumoniae Not Detected (NOT DETECT); Coronavirus 229E Not Detected (NOT DETECT); Coronavirus HKU1 Not Detected (NOT DETECT); Coronavirus NL63 Not Detected (NOT DETECT); Coronavirus OC43 Not Detected (NOT DETECT); Human Metapneumovirus Not Detected (NOT DETECT); Human Rhinovirus/Enterovirus Not Detected (NOT DETECT); Influenza A/2009-H1 Not Detected (NOT DETECT); Influenza A/H1 Not Detected (NOT DETECT); Influenza A/H3 Not Detected (NOT DETECT); Influenza B Not Detected (NOT DETECT); Mycoplasma pneumoniae Not Detected (NOT DETECT); Parainfluenza Virus 1 Not Detected (NOT DETECT); Parainfluenza Virus 2 Not Detected (NOT DETECT); Parainfluenza Virus 3 Not Detected (NOT DETECT); Parainfluenza Virus 4 Not Detected (NOT DETECT); Respiratory Syncytial Virus Detected (NOT DETECT)
[2020-01-10 03:27] LABS: BASOPHILS ABSOLUTE AUTO 0.04 K/mm3 (0.00-0.23); BASOPHILS PERCENT AUTO 0 % (0-2); EOSINOPHILS ABSOLUTE AUTO 0.01 K/mm3 (0.00-0.68); EOSINOPHILS PERCENT AUTO 0 % (0-6); Hematocrit 38.5 % (37.0-53.0); Hemoglobin 12.9 g/dL (13.5-17.5); IMMATURE GRAN ABSOLUTE AUTO 0.12 K/mm3 (0.00-0.10); IMMATURE GRAN PERCENT AUTO 1 % (0-1); LYMPHOCYTES ABSOLUTE AUTO 0.47 K/mm3 (0.84-5.20); LYMPHOCYTES PERCENT AUTO 5 % (21-46); MONOCYTES ABSOLUTE AUTO 0.99 K/mm3 (0.16-1.47); MONOCYTES PERCENT AUTO 10 % (4-13); Mean Corpuscular HGB 32.6 pg (26.0-34.0); Mean Corpuscular HGB Conc 33.5 g/dL (31.5-36.5); Mean Corpuscular Volume 97 fL (80-100); Mean Platelet Volume 10.1 fL (9.1-12.4); NEUTROPHILS ABSOLUTE AUTO 8.32 K/mm3 (1.96-9.15); NEUTROPHILS PERCENT AUTO 84 % (41-73); Platelet Count 117 K/mm3 (150-400); RDW Coefficient Variation 14.3 % (11.7-14.2); RDW Standard Deviation 51.8 fL (35.1-46.3); Red Blood Cell Count 3.96 M/mm3 (4.30-5.90); White Blood Cell Count 9.95 K/mm3 (4.00-11.30)
[2020-01-10 03:47] LABS: Anion Gap 9 mmol/L (6-16); Blood Urea Nitrogen 14 mg/dL (8-24); Bun/Creatinine Ratio 21.6 (12.0-20.0); CO2, Blood 22 mmol/L (21-32); Calcium, Blood 8.1 mg/dL (8.5-10.1); Chloride, Blood 102 mmol/L (98-108); Creatinine, Blood 0.65 mg/dL (0.60-1.20); Glomerular Filtration Rate >60 (60-); Glucose, Blood 116 mg/dL (70-99); Potassium, Blood 3.8 mmol/L (3.5-5.5); Sodium, Blood 133 mmol/L (136-145)
--- NOTE | 2020-01-10 04:05 | NUR ---
SHIFT SUMMARY: PATIENT FLUCTUATING WITH O2 NEEDS, ALERT AND ORIENTED BUT FORGETFULL, MAXIMUM ASSIST D/T WEAKNESS WITH SOB. CT COMPLETED PER AUTO BODY REPAIRMAN ORDERS, VSS AT THIS TIME. MEDICATION RECORD NOT COMPLETED PATEINT DOES NOT REMEMBER THE LAST TIME HE TOOK ANY MEDICATIONS.
[2020-01-10 05:30] LABS: International Normalized Ratio 1.17; Prothrombin Time Results 12.4 Sec (9.7-11.5)
--- NOTE | 2020-01-10 07:20 | NUR ---
ASSUMED CARE: PT RESTING IN BED WATCHING TV. TALKING TO STAFF. 3L NC IN PLACE. HEPARIN GTT CONFIRMED WITH GABBY DIA. NO ACUTE NEEDS OR CONCERNS AT THIS TIME.
--- NOTE | 2020-01-10 10:00 | NUR ---
DISCUSSED WITH DR ROSE PT'S ADMISSION AND BEDSIDE SWALLOW EVAL DONE BY NIGHT RN. ADMINISTERED MEDS THIS AM WITH APPLESAUCE. DR AWARE AND AGREES TO THIS. PT'S CALLED AND ASKED HER ABOUT HISTORY OF ASPIRATING WHICH DENIES EVER SEEING ANY. MADE AWARE. ASKED DR ROSE ABOUT AFIB HISTORY WHICH STATES THIS IS NOT NEW FOR PT.
[2020-01-10 13:54] LABS: Test Name COVID-19
--- NOTE | 2020-01-10 17:08 | NUR ---
IT WAS NOTED THAT PT HAS NOT VOIDED MUCH THIS SHIFT. BLADDER SCAN POST VOID REVEALED ONLY 80 IN. WILL CONTINUE TO MONITOR. TEST INSPECTION ENGINEER AWARE.
--- NOTE | 2020-01-10 17:58 | NUR ---
SHIFT SUMMARY: PT BEING RULED OUT FOR COVID [address] ROSE'S REQUEST DUE TO CT RESULT. HAS BEEN REQUIRING 3-4L O2. UP IN CHAIR FOR DINNER. IVF RUNNING AT 75/HR. SMALL VOIDS BUT SMALL VOLUME PER BLADDER SCAN. NO ACUTE NEEDS OR CONCERNS AT THIS TIME.
--- NOTE | 2020-01-10 19:29 | NUR ---
CALL TO DR ROSE BECAUSE PT HAS NOT HAD ABX AND STEROIDS ORDERED THIS SHIFT. DR ROSE STATES THAT BECAUSE PROCALCITONIN IS LOW ABX MAY NOT BE NEEDED. LAB CALLED WITH RESULT FOR BLOOD CULTURES. CALL TO DR ROSE, ORDER FOR ABX.
--- NOTE | 2020-01-11 06:38 | NUR ---
SHIFT SUMMARY PT REMAINS UNCHANGED FROM ASSESSMENT, SLEEPY BUT WILL WAKE UP WHEN STIMULATED. PT DID HAVE AN INCREASED TEMP EARLY IN THE NIGHT, TYLENOL WAS GIVEN, TEMP WNL AT THIS TIME. IV VANCO WAS ORDERED & ADMINISTERED PER EMAR FOR POSITIVE BLOOD CULTURE RESULTS, NS INFUSING @ 75 ML/HR, O2 VIA NC @ 4 L, LUNG SOUNDS ARE DIM W/EXP WHEEZES, Q2 TURNS, BED ALARM ON FOR SAFETY, CALL LIGHT IN REACH, WCTM & REPORT TO DAY RN
--- NOTE | 2020-01-11 07:21 | NUR ---
ASSUMED CARE: PT RESTING QUIETLY AT THIS TIME ON RA. SATTING LOW 90S AT THIS TIME. APPEARS TO BE SNORING. NO ACUTE NEEDS OR CONCERNS AT THIS TIME.
[2020-01-11 09:44] LABS: BASOPHILS ABSOLUTE AUTO 0.01 K/mm3 (0.00-0.23); BASOPHILS PERCENT AUTO 0 % (0-2); EOSINOPHILS PERCENT AUTO 0 % (0-6); Hematocrit 36.7 % (37.0-53.0); Hemoglobin 12.4 g/dL (13.5-17.5); IMMATURE GRAN ABSOLUTE AUTO 0.05 K/mm3 (0.00-0.10); IMMATURE GRAN PERCENT AUTO 1 % (0-1); LYMPHOCYTES ABSOLUTE AUTO 0.46 K/mm3 (0.84-5.20); LYMPHOCYTES PERCENT AUTO 7 % (21-46); MONOCYTES ABSOLUTE AUTO 0.24 K/mm3 (0.16-1.47); MONOCYTES PERCENT AUTO 4 % (4-13); Mean Corpuscular HGB 32.6 pg (26.0-34.0); Mean Corpuscular HGB Conc 33.8 g/dL (31.5-36.5); Mean Corpuscular Volume 97 fL (80-100); Mean Platelet Volume 10.6 fL (9.1-12.4); NEUTROPHILS ABSOLUTE AUTO 5.95 K/mm3 (1.96-9.15); NEUTROPHILS PERCENT AUTO 89 % (41-73); Platelet Count 117 K/mm3 (150-400); RDW Coefficient Variation 14.5 % (11.7-14.2); RDW Standard Deviation 51.4 fL (35.1-46.3); White Blood Cell Count 6.71 K/mm3 (4.00-11.30)
[2020-01-11 10:08] LABS: Alanine Aminotransfer (ALT/SGP 13 U/L (12-78); Albumin, Blood 2.8 g/dL (3.4-5.0); Albumin/Globulin Ratio 0.7 (0.8-1.8); Alk Phos 51 U/L (50-136); Anion Gap 8 mmol/L (6-16); Aspartate Aminotrans (AST/SGOT 17 U/L (12-37); Bilirubin, Total 0.6 mg/dL (0.1-1.0); Blood Urea Nitrogen 21 mg/dL (8-24); Bun/Creatinine Ratio 37.3 (12.0-20.0); CO2, Blood 23 mmol/L (21-32); Chloride, Blood 104 mmol/L (98-108); Creatinine, Blood 0.56 mg/dL (0.60-1.20); Globulin, Blood 3.8 g/dL (2.2-4.0); Glomerular Filtration Rate >60 (60-); Glucose, Blood 165 mg/dL (70-99); Magnesium, Blood 1.9 mg/dL (1.6-2.4); Phosphorus, Blood 2.6 mg/dL (2.5-4.9); Potassium, Blood 4.5 mmol/L (3.5-5.5); Sodium, Blood 135 mmol/L (136-145); Total Protein, Blood 6.6 g/dL (6.4-8.2)
--- NOTE | 2020-01-11 16:46 | NUR ---
REPORT CALLED TO IFEOMA NG ON MEDICAL FLOOR. BERENICE AWARE THAT PT HAS REQUIRED BED AND CHAIR ALARMS AND IS COVID R/O SO DOOR HAS BEEN CRACKED FOR SAFETY. TRANSFERRED UP VIA BED BY HOSPITAL STAFF. PT STATES HE WILL CONTACT HIS WHEN HE GETS TO NEW ROOM.
--- NOTE | 2020-01-11 18:16 | NUR ---
SHIFT SUMMARY. 1653 PT TRANSFERED TO MEDICAL FLOOR FROM PCU VIA BED. PT TRANSFERED WITH ONE ASSIST TO BED. ENHANCED DROPLET ISOLATION INITATED PER PROTOCOL. PT DENIES PAIN, SOB, N/V. CONTINUES WITH 4L O2 NC.
--- NOTE | 2020-01-12 04:38 | NUR ---
SHIFT SUMMARY ADMITTED FOR ACUTE RESP FAILURE W/HYPOXIA. DNR CODE. FULL LIQUID DIET, TELEMETRY SHOWS AFIB W/BBB @ 75 BPM. MEDS TAKEN WHOLE WITH APPLESAUCE. RA, A&O X4, 1 ASSIST TO CHAIR. NS IS INFUSING @ 50 ML/HR. HX: LIA, AFIB, COPD. DROPLET CONTACT PRECAUTIONS TO RULE OUT COVID.
[2020-01-12 06:00] LABS: BASOPHILS ABSOLUTE AUTO 0.01 K/mm3 (0.00-0.23); BASOPHILS PERCENT AUTO 0 % (0-2); EOSINOPHILS PERCENT AUTO 0 % (0-6); Hematocrit 34.2 % (37.0-53.0); Hemoglobin 11.5 g/dL (13.5-17.5); IMMATURE GRAN ABSOLUTE AUTO 0.06 K/mm3 (0.00-0.10); IMMATURE GRAN PERCENT AUTO 1 % (0-1); LYMPHOCYTES ABSOLUTE AUTO 0.42 K/mm3 (0.84-5.20); LYMPHOCYTES PERCENT AUTO 6 % (21-46); MONOCYTES PERCENT AUTO 4 % (4-13); Mean Corpuscular HGB 32.7 pg (26.0-34.0); Mean Corpuscular HGB Conc 33.6 g/dL (31.5-36.5); Mean Corpuscular Volume 97 fL (80-100); Mean Platelet Volume 10.7 fL (9.1-12.4); NEUTROPHILS ABSOLUTE AUTO 6.37 K/mm3 (1.96-9.15); NEUTROPHILS PERCENT AUTO 89 % (41-73); Platelet Count 127 K/mm3 (150-400); RDW Coefficient Variation 14.5 % (11.7-14.2); RDW Standard Deviation 52.3 fL (35.1-46.3); Red Blood Cell Count 3.52 M/mm3 (4.30-5.90); White Blood Cell Count 7.16 K/mm3 (4.00-11.30)
[2020-01-12 06:17] LABS: Anion Gap 5 mmol/L (6-16); Blood Urea Nitrogen 21 mg/dL (8-24); Bun/Creatinine Ratio 48.1 (12.0-20.0); CO2, Blood 24 mmol/L (21-32); Calcium, Blood 8.2 mg/dL (8.5-10.1); Chloride, Blood 103 mmol/L (98-108); Creatinine, Blood 0.44 mg/dL (0.60-1.20); Glomerular Filtration Rate >60 (60-); Glucose, Blood 158 mg/dL (70-99); Potassium, Blood 4.7 mmol/L (3.5-5.5); Sodium, Blood 132 mmol/L (136-145)
--- NOTE | 2020-01-12 08:45 | NUR ---
PT PLEASANT COOP A/O X3 DENIES PAIN AT THIS TIME. H/R IRREG, NO MURMER NOTED. PER TELE AFIB WITH BBB RATE 80.LUNGS COARSE IN BASES WITH EXP LIGHT T/O. ON 4L O2. WILL SPEAK TO DR CATHERINE WHEN SEE TODAY RE LUNGS. BT X4 LAST BM 4-5 DAYS, WILL SPEAK TO DR SCHAFER THIS ALSO. VOIDS PER URINAL. BED IN LOW POSITION, CALL LITE IN REACH, BED ALARM ON FOR SAFETY
--- NOTE | 2020-01-12 10:06 | NUR ---
09:47 RECEIVED CALL FROM PRASHANT PEREIRA, FROM [facility]. DOES REMAIN RSV POS
--- NOTE | 2020-01-12 19:21 | NUR ---
PT PLEASANT TODAY. SOME IMPULSIVITY IN GETTING OUT OF BED, BED ALARM REMINDS. IS SOME UNSTEADY ON FEET YET, PT/OT WORKING TO STRENGTHEN. O2 ABLE TO BE TURNED DOWN FROM 4 TO 2L TODAY. MAINTAINING SATS >95%. PT NOT ON HOME O2. CLEARED COVID TODAY. STILL HAS RSV. PE HOPING FOR D.C IN DAY OR 2. NO OTHER CONCERNS AT THIS TIME. BED IN LOW POSITIOIN,C ALL LITE IN REACH, BED ALARM ON FOR SAFETY
[2020-01-12 20:42] LABS: Vancomycin, Trough 4.5 ug/mL (5.0-10.0)
[2020-01-13 05:50] LABS: BASOPHILS ABSOLUTE AUTO 0.01 K/mm3 (0.00-0.23); BASOPHILS PERCENT AUTO 0 % (0-2); EOSINOPHILS PERCENT AUTO 0 % (0-6); Hematocrit 33.8 % (37.0-53.0); Hemoglobin 11.2 g/dL (13.5-17.5); IMMATURE GRAN ABSOLUTE AUTO 0.05 K/mm3 (0.00-0.10); IMMATURE GRAN PERCENT AUTO 1 % (0-1); LYMPHOCYTES PERCENT AUTO 7 % (21-46); MONOCYTES ABSOLUTE AUTO 0.18 K/mm3 (0.16-1.47); MONOCYTES PERCENT AUTO 3 % (4-13); Mean Corpuscular HGB 32.3 pg (26.0-34.0); Mean Corpuscular HGB Conc 33.1 g/dL (31.5-36.5); Mean Corpuscular Volume 97 fL (80-100); Mean Platelet Volume 10.8 fL (9.1-12.4); NEUTROPHILS ABSOLUTE AUTO 5.06 K/mm3 (1.96-9.15); NEUTROPHILS PERCENT AUTO 89 % (41-73); Platelet Count 146 K/mm3 (150-400); RDW Coefficient Variation 14.6 % (11.7-14.2); RDW Standard Deviation 52.3 fL (35.1-46.3); Red Blood Cell Count 3.47 M/mm3 (4.30-5.90)
[2020-01-13 06:06] LABS: Anion Gap 6 mmol/L (6-16); Blood Urea Nitrogen 17 mg/dL (8-24); Bun/Creatinine Ratio 31.5 (12.0-20.0); CO2, Blood 28 mmol/L (21-32); Calcium, Blood 8.2 mg/dL (8.5-10.1); Chloride, Blood 101 mmol/L (98-108); Creatinine, Blood 0.54 mg/dL (0.60-1.20); Glomerular Filtration Rate >60 (60-); Glucose, Blood 155 mg/dL (70-99); Potassium, Blood 4.3 mmol/L (3.5-5.5); Sodium, Blood 135 mmol/L (136-145)
--- NOTE | 2020-01-13 06:31 | NUR ---
SHIFT SUMMARY ADMITTED FOR ACUTE RESP FAILURE W/HYPOXEMIA. DNR CODE. IN DROPLET PRECAUTION FOR RSV. PT RECEIVING RESPIRATORY TX'S. FULL LIQUID DIET. 1500 ML FLUID RESTRICTION. MEDS TAKEN WHOLE W/APPLESAUCE OR WATER. TELEMETRY: AFIB @ 58 BPM. CAN BE IMPULSIVE. IV ANTIBIOTICS ARE SCHEDULED. 2 LPM O2 VIA NC.
--- NOTE | 2020-01-13 09:00 | NUR ---
PT PLEASANT COOP A/O. DID RECOGNIZE ME AND CALL ME BY NAME WHEN I CAME TO ROOM. DENIES PIAN THIS AM. H/R IRREG, HX AFIB, NO MURMER NOTED. PER TELE AFIB WITH BBB AT 71. LUNGS COARSE T/O. WILL DISCUSS WITH DR WHEN SEE. OX TURNED DOWN YEST FROM 4L TO 2L . ON R.A. THIS AM. DOING WELL. VSS. STATES SOB WITH ACTIVITY. BT X4 LAST BM YEST. VOIDS URINAL. BED IN LOW POSITION, CALL LITE IN REACH, CALLS APPROP, BED ALARM ON FOR SAFETY R/T IMPULSIVITY
--- NOTE | 2020-01-13 18:27 | NUR ---
PT PLEASANT TODAY, DID WELL ON HOME O2 EVAL. CATHY RT STATES WILL NOT NEED O2 ON D/C. PT SATS REMAIN MID 90'S TODAY ON R.A. CALLED AND SHE PLEASED LIKELY D.C TOMORROW PER DR. CATHERINE. NO OTHER CONCERNS AT THIS TIME. BED IN LOW POSITION,C ALL LITE IN [facility], CALLS APPROP, BED ALARM ON FOR IMPULSIVITY
--- NOTE | 2020-01-13 19:11 | NUR ---
Initial spiritual care note: Mr. Loza is a roger man with a strong greg that sustains him. He denied concerns/fears. He has a strong marriage. Provided prayer and encouragement. He feels he is getting better. No needs presented. I will remian available.
--- NOTE | 2020-01-14 00:20 | NUR ---
REFUSED VANCOMYCIN ORDERED. WOULD NOT ACCEPT NURSE ENCOURAGEMENT TO TAKE IT TO HELP WITH HIS LUNG ISSUES. ADAMANT OF NOT TAKING IT. DEMANDED TO GET UP IN HIS CHAIR AT 0000 EVEN THOUGH HE ACKNOWLEDGED IT WAS MIDNIGHT. CALL LIGHT IN REACH. WILL CONTINUE TO MONITOR.
[2020-01-14 10:14] LABS: Vancomycin, Trough 7.5 ug/mL (5.0-10.0)
[2020-01-14] MEDS ORDERED: ATORVASTATIN CA40 M1 PO (10:44)
[2020-01-14] MEDS ORDERED: ALBU2.5V5 INH (10:44)
[2020-01-14] MEDS ORDERED: BENZ100A PO (10:44)
[2020-01-14] MEDS ORDERED: XARELTO15 MG PO (10:45)
[2020-01-14] MEDS ORDERED: AIRDUO RESPICL1 EAC2 INH (10:45)
[2020-01-14] MEDS ORDERED: Florastor250 MG PO (10:45)
[2020-01-14] MEDS ORDERED: METO25ER PO (10:46)
== END 2020-01-14 11:35 | disposition home or self-care (01) | DRG 193 ==
LOC: ER 18:02 → PCU 21:20 → MEDS 01-11 16:53
PROVIDERS: Emergency Medicine; Hospitalist; Internal Medicine Endocrinology, Diabetes & Metabolism; Nurse Practitioner Acute Care; Pharmacist; ADMIT Internal Medicine
DX: J12.1 Respiratory syncytial virus pneumonia (principal); J96.01 Acute respiratory failure with hypoxia; E87.1 Hypo-osmolality and hyponatremia; J44.1 Chronic obstructive pulmonary disease with (acute) exacerbation; J44.0 Chronic obstructive pulmonary disease with (acute) lower respiratory infection; D69.6 Thrombocytopenia, unspecified; E03.9 Hypothyroidism, unspecified; G47.33 Obstructive sleep apnea (adult) (pediatric); I25.10 Atherosclerotic heart disease of native coronary artery without angina pectoris; K59.09 Other constipation; Z86.73 Personal history of transient ischemic attack (TIA), and cerebral infarction without residual deficits; Z96.641 Presence of right artificial hip joint; N18.9 Chronic kidney disease, unspecified; E78.5 Hyperlipidemia, unspecified; I48.0 Paroxysmal atrial fibrillation; R26.0 Ataxic gait; Z87.891 Personal history of nicotine dependence; Z66 Do not resuscitate
CPT/HCPCS: 0099U; 31720; 36415; 71045; 71250; 80048; 80053; 80202; 82565; 82803; 83605; 83735; 83880; 84100; 84145; 84484; 85025; 85610; 85730; 87040; 93005; 93010; 94640; 94760; 94761; 94762; 96361; 96365; 97110; 97116; 97162; 97165; 97535; 99285-25; A9270; A9270-GY; J0696; J1644; J2405; J2920; J2930; J3370; J7030; J7050; U0001

== ENCOUNTER → 2020-04-08 | Outpatient (CLI) | payer MEDICARE ==
[~2020-04-08] MED LIST changes: +AIRDUO RESPICL1 EAC2 INH; +ALBU2.5V5 INH; +ATORVASTATIN CA40 M1 PO; +BENZ100A PO; +Florastor250 MG PO; +XARELTO15 MG PO
[2020-04-08 13:17] LABS: BASOPHILS ABSOLUTE AUTO 0.08 K/mm3 (0.00-0.23); BASOPHILS PERCENT AUTO 1 % (0-2); EOSINOPHILS ABSOLUTE AUTO 0.68 K/mm3 (0.00-0.68); EOSINOPHILS PERCENT AUTO 11 % (0-6); Hematocrit 39.6 % (37.0-53.0); Hemoglobin 13.2 g/dL (13.5-17.5); IMMATURE GRAN ABSOLUTE AUTO 0.02 K/mm3 (0.00-0.10); IMMATURE GRAN PERCENT AUTO 0 % (0-1); LYMPHOCYTES ABSOLUTE AUTO 0.87 K/mm3 (0.84-5.20); LYMPHOCYTES PERCENT AUTO 14 % (21-46); MONOCYTES ABSOLUTE AUTO 0.57 K/mm3 (0.16-1.47); MONOCYTES PERCENT AUTO 9 % (4-13); Mean Corpuscular HGB 31.3 pg (26.0-34.0); Mean Corpuscular HGB Conc 33.3 g/dL (31.5-36.5); Mean Corpuscular Volume 94 fL (80-100); NEUTROPHILS ABSOLUTE AUTO 3.98 K/mm3 (1.96-9.15); NEUTROPHILS PERCENT AUTO 64 % (41-73); Platelet Count 223 K/mm3 (150-400); RDW Coefficient Variation 14.1 % (11.7-14.2); RDW Standard Deviation 47.8 fL (35.1-46.3); Red Blood Cell Count 4.22 M/mm3 (4.30-5.90)
[2020-04-08 13:55] LABS: Alanine Aminotransfer (ALT/SGP 13 U/L (12-78); Albumin, Blood 3.9 g/dL (3.4-5.0); Alk Phos 60 U/L (40-126); Anion Gap 9 mmol/L (6-16); Aspartate Aminotrans (AST/SGOT 16 U/L (12-37); Bilirubin, Total 0.5 mg/dL (0.1-1.0); Blood Urea Nitrogen 19 mg/dL (8-24); Bun/Creatinine Ratio 22.1 (12.0-20.0); CO2, Blood 29 mmol/L (21-32); Calcium, Blood 8.8 mg/dL (8.5-10.1); Chloride, Blood 100 mmol/L (98-108); Creatinine, Blood 0.86 mg/dL (0.60-1.20); Globulin, Blood 4.1 g/dL (2.2-4.0); Glomerular Filtration Rate >60 (60-); Glucose, Blood 96 mg/dL (70-99); Potassium, Blood 4.2 mmol/L (3.5-5.5); Sodium, Blood 138 mmol/L (136-145)
[2020-04-08 16:05] LABS: Percent Saturation 10.6 % (20.0-50.0)
== END | disposition home or self-care (01) ==
LOC: LAB EV 12:14
PROVIDERS: Physician Assistant
DX: J44.9 Chronic obstructive pulmonary disease, unspecified (principal); E03.9 Hypothyroidism, unspecified; D50.9 Iron deficiency anemia, unspecified
CPT/HCPCS: 36415; 80053; 82728; 83540; 83550; 84443; 85025

== ENCOUNTER 2020-11-30 19:53 | Emergency (ER) | payer MEDICARE ==
[~2020-11-30] VITALS: Ht 182.9 cm; Wt 81.7 kg
[~2020-11-30 19:53] MED LIST changes: -AIRDUO RESPICL1 EAC2 INH; +FLUT1DIS5 INH; +LEVE500 PO; +Plavix75 MG PO
== END 2020-11-30 22:30 | disposition home or self-care (01) ==
LOC: ER 19:53
DX: S40.011A Contusion of right shoulder, initial encounter (principal); J44.9 Chronic obstructive pulmonary disease, unspecified; I48.91 Unspecified atrial fibrillation; E78.5 Hyperlipidemia, unspecified; N18.9 Chronic kidney disease, unspecified; K21.9 Gastro-esophageal reflux disease without esophagitis; Z79.02 Long term (current) use of antithrombotics/antiplatelets; Z88.6 Allergy status to analgesic agent; Z86.73 Personal history of transient ischemic attack (TIA), and cerebral infarction without residual deficits; Z87.891 Personal history of nicotine dependence; Z79.899 Other long term (current) drug therapy; W01.0XXA Fall on same level from slipping, tripping and stumbling without subsequent striking against object, initial encounter; Y93.89 Activity, other specified; Y92.015 Private garage of single-family (private) house as the place of occurrence of the external cause
CPT/HCPCS: 70450; 73030; 99284-25

== ENCOUNTER 2021-01-10 09:03 | Observation (INO) | payer MEDICARE ==
[~2021-01-10] VITALS: Ht 182.9 cm; Wt 76.6 kg
[2021-01-10 09:29] LABS: BASOPHILS ABSOLUTE AUTO 0.02 K/mm3 (0.00-0.23); BASOPHILS PERCENT AUTO 0 % (0-2); EOSINOPHILS ABSOLUTE AUTO 1.39 K/mm3 (0.00-0.68); EOSINOPHILS PERCENT AUTO 22 % (0-6); Hematocrit 39.2 % (37.0-53.0); Hemoglobin 13.2 g/dL (13.5-17.5); IMMATURE GRAN ABSOLUTE AUTO 0.05 K/mm3 (0.00-0.10); IMMATURE GRAN PERCENT AUTO 1 % (0-1); LYMPHOCYTES ABSOLUTE AUTO 1.23 K/mm3 (0.84-5.20); LYMPHOCYTES PERCENT AUTO 19 % (21-46); MONOCYTES ABSOLUTE AUTO 0.37 K/mm3 (0.16-1.47); MONOCYTES PERCENT AUTO 6 % (4-13); Mean Corpuscular HGB 32.6 pg (26.0-34.0); Mean Corpuscular HGB Conc 33.7 g/dL (31.5-36.5); Mean Corpuscular Volume 97 fL (80-100); Mean Platelet Volume 10.3 fL (9.1-12.4); NEUTROPHILS ABSOLUTE AUTO 3.28 K/mm3 (1.96-9.15); NEUTROPHILS PERCENT AUTO 52 % (41-73); Platelet Count 164 K/mm3 (150-400); RDW Coefficient Variation 14.4 % (11.7-14.2); RDW Standard Deviation 51.5 fL (35.1-46.3); Red Blood Cell Count 4.05 M/mm3 (4.30-5.90); White Blood Cell Count 6.34 K/mm3 (4.00-11.30)
[2021-01-10 09:50] LABS: Alanine Aminotransfer (ALT/SGP 15 U/L (12-78); Albumin/Globulin Ratio 0.9 (0.8-1.8); Alk Phos 62 U/L (50-136); Anion Gap 4 mmol/L (6-16); Aspartate Aminotrans (AST/SGOT 18 U/L (12-37); Blood Urea Nitrogen 16 mg/dL (8-24); Bun/Creatinine Ratio 21.1 (12.0-20.0); CO2, Blood 30 mmol/L (21-32); Calcium, Blood 8.8 mg/dL (8.5-10.1); Chloride, Blood 105 mmol/L (98-108); Creatinine, Blood 0.76 mg/dL (0.60-1.20); Globulin, Blood 3.2 g/dL (2.2-4.0); Glomerular Filtration Rate >60 (60-); Glucose, Blood 128 mg/dL (70-99); Sodium, Blood 139 mmol/L (136-145); Total Protein, Blood 6.2 g/dL (6.4-8.2); Troponin I <0.015 ng/mL (0.000-0.040)
[2021-01-10] MEDS ORDERED: COMBIVENT RESPIM4 G1 INH (11:53)
--- NOTE | 2021-01-10 18:32 | NUR ---
PATIENT IS ALERT AND ORIENTED AND COOPERATIVE WITH CARE. PATIENT CALLS APPROPRIATELY TO SE THE RESTROOM. HE CAN USE THE URINAL INDEPENDENTLY. PATIENT WORKED WITH OT THIS AFTERNOON. NO SYNCOPAL EPISODES THIS HIS ARRIVAL TO THIS UNIT. ORTHOSTATIC VITALS ORDERED BID. WILL CONTINUE TO MONITOR
--- NOTE | 2021-01-11 04:27 | NUR ---
LOBBY CONCIERGE SUMMARY PT A&OX4, ABLE TO MAKE NEEDS KNOWN. PLEASANT AND COOPERATIVE TO CARE. NO C/O PAIN OR ANY DISCOMFORT THIS SHIFT. NO C/O CP, SOB, OR N&V. PT CALM AND RESTED IN BED T/O SHIFT. NO SYNCOPAL EPISODES NOTED. NO ACUTE CHANGES NOTED TO PT. BED AT LOWEST POSITION. CALL LIGHT WITHIN REACH.
[2021-01-11 05:14] LABS: BASOPHILS ABSOLUTE AUTO 0.02 K/mm3 (0.00-0.23); BASOPHILS PERCENT AUTO 0 % (0-2); EOSINOPHILS ABSOLUTE AUTO 1.75 K/mm3 (0.00-0.68); EOSINOPHILS PERCENT AUTO 29 % (0-6); Hematocrit 35.9 % (37.0-53.0); Hemoglobin 12.5 g/dL (13.5-17.5); IMMATURE GRAN ABSOLUTE AUTO 0.03 K/mm3 (0.00-0.10); IMMATURE GRAN PERCENT AUTO 1 % (0-1); LYMPHOCYTES ABSOLUTE AUTO 1.16 K/mm3 (0.84-5.20); LYMPHOCYTES PERCENT AUTO 19 % (21-46); MONOCYTES ABSOLUTE AUTO 0.37 K/mm3 (0.16-1.47); MONOCYTES PERCENT AUTO 6 % (4-13); Mean Corpuscular HGB 32.8 pg (26.0-34.0); Mean Corpuscular HGB Conc 34.8 g/dL (31.5-36.5); Mean Corpuscular Volume 94 fL (80-100); Mean Platelet Volume 9.9 fL (9.1-12.4); NEUTROPHILS ABSOLUTE AUTO 2.76 K/mm3 (1.96-9.15); NEUTROPHILS PERCENT AUTO 45 % (41-73); Platelet Count 156 K/mm3 (150-400); RDW Coefficient Variation 14.4 % (11.7-14.2); RDW Standard Deviation 49.5 fL (35.1-46.3); Red Blood Cell Count 3.81 M/mm3 (4.30-5.90); White Blood Cell Count 6.09 K/mm3 (4.00-11.30)
[2021-01-11 05:39] LABS: Alanine Aminotransfer (ALT/SGP 14 U/L (12-78); Albumin, Blood 2.7 g/dL (3.4-5.0); Albumin/Globulin Ratio 0.8 (0.8-1.8); Alk Phos 57 U/L (50-136); Anion Gap 4 mmol/L (6-16); Aspartate Aminotrans (AST/SGOT 13 U/L (12-37); Bilirubin, Total 0.7 mg/dL (0.1-1.0); Blood Urea Nitrogen 14 mg/dL (8-24); Bun/Creatinine Ratio 21.8 (12.0-20.0); CO2, Blood 27 mmol/L (21-32); Calcium, Blood 8.3 mg/dL (8.5-10.1); Chloride, Blood 105 mmol/L (98-108); Creatinine, Blood 0.64 mg/dL (0.60-1.20); Globulin, Blood 3.2 g/dL (2.2-4.0); Glomerular Filtration Rate >60 (60-); Glucose, Blood 89 mg/dL (70-99); Potassium, Blood 3.8 mmol/L (3.5-5.5); Sodium, Blood 136 mmol/L (136-145); Total Protein, Blood 5.9 g/dL (6.4-8.2); Troponin I <0.015 ng/mL (0.000-0.040)
--- NOTE | 2021-01-11 12:47 | NUR ---
PATIENT AND HIS STATE THEY WILL CALL TO SCHEDULE A FOLLOW-UP APPOINTMENT WITH DR. REED AT [facility] UPON HIS DISCHARGE.
--- NOTE | 2021-01-11 13:47 | NUR ---
Sea tells me that he is waiting for his to arrive to pick him up because he will DC today. Patient explains about his fall and his hit and miss with his medications. Patient says that he can fix the inconsistancy. I provide therapeutic listening and prayer. Patient voices appreciation.
--- NOTE | 2021-01-11 15:27 | NUR ---
ADMIT: 01/10/21 DISCHARGE: 01/11/21 DX: syncope CC:cpeabody ADMIT: 04/27/20 DISCHARGE: 04/29/20 DX: SEIZURE CC: CPEABODY ADMIT: 01/09/20 DISCHARGE: 01/14/2020 DX:ACUTE RESP. FAILURE W/ HYPOXIA CAROLIN CALL: Met with Ryley, call his , Lexy [phone] or himself for carolin. 1 week f/u [facility]: home CAREGIVER: Lexy Loza, Spouse / Partner, Anton Loza, Child, DX: abdominal aortic aneurysm, COPD, GERD, CVA, see list DME: none CCM: none HOME HEALTH: 01/11/21 ordered [facility] for PT and OT, gave order to katheryn- 01/11 declined Home health.per katheryn at home health. SUMMARY: Admit: 01/10/21 01/11/21 Discharge home, friend to pick him up. Home health was ordered for pt and ot, already notiifed that is declining home health. Reviewed carolin call planned for or Saturday, left letter for his to review, He is VERY hard of hearing, may be better to talk to by phone. Did not identify any care needs for home. cp 1. Syncope.
== END 2021-01-11 13:35 | disposition home health service (06) ==
LOC: ER 09:03 → ERHOLD 09:04 → MEDS 09:04
PROVIDERS: Emergency Medicine; ADMIT Internal Medicine
DX: R55 Syncope and collapse (principal); I48.21 Permanent atrial fibrillation; E03.9 Hypothyroidism, unspecified; I35.8 Other nonrheumatic aortic valve disorders; I27.20 Pulmonary hypertension, unspecified; M19.90 Unspecified osteoarthritis, unspecified site; N40.1 Benign prostatic hyperplasia with lower urinary tract symptoms; R39.11 Hesitancy of micturition; R07.89 Other chest pain; H90.3 Sensorineural hearing loss, bilateral; R26.81 Unsteadiness on feet; J45.909 Unspecified asthma, uncomplicated; K21.9 Gastro-esophageal reflux disease without esophagitis; N18.9 Chronic kidney disease, unspecified; G47.33 Obstructive sleep apnea (adult) (pediatric); E78.5 Hyperlipidemia, unspecified; M81.0 Age-related osteoporosis without current pathological fracture; M40.209 Unspecified kyphosis, site unspecified; Z91.14 Patient's other noncompliance with medication regimen; Z91.81 History of falling; Z96.641 Presence of right artificial hip joint; Z86.73 Personal history of transient ischemic attack (TIA), and cerebral infarction without residual deficits; Z88.6 Allergy status to analgesic agent; Z87.891 Personal history of nicotine dependence; Z87.81 Personal history of (healed) traumatic fracture; Z97.4 Presence of external hearing-aid; Z66 Do not resuscitate
CPT/HCPCS: 36415; 71045; 80053; 84443; 84484; 85025; 93005; 93010; 93306; 94640; 94760; 97116; 97162; 97165; 97530; 97535; 99285-25; A9270; G0008; G0378; J1650; Q2038

== ENCOUNTER 2021-01-16 11:14 | Emergency (ER) | payer MEDICARE ==
[~2021-01-16] VITALS: Ht 182.9 cm; Wt 77.1 kg
[~2021-01-16 11:14] MED LIST changes: +COMBIVENT RESPIM4 G1 INH
[2021-01-16] MEDS ORDERED: HYDR1TAB94 PO (13:13)
[2021-01-16] MEDS ORDERED: LIDO700A20 TOP (13:13)
== END 2021-01-16 13:30 | disposition home or self-care (01) ==
LOC: ER 11:14
DX: S20.212A Contusion of left front wall of thorax, initial encounter (principal); E03.9 Hypothyroidism, unspecified; I48.91 Unspecified atrial fibrillation; E78.5 Hyperlipidemia, unspecified; J45.909 Unspecified asthma, uncomplicated; Z86.73 Personal history of transient ischemic attack (TIA), and cerebral infarction without residual deficits; Z88.6 Allergy status to analgesic agent; X50.1XXA Overexertion from prolonged static or awkward postures, initial encounter
CPT/HCPCS: 71045; 99283-25; A9270

== ENCOUNTER 2021-03-08 20:56 | Observation (INO) | payer MEDICARE ==
[~2021-03-08] VITALS: Ht 182.9 cm; Wt 77.1 kg
[~2021-03-08 20:56] MED LIST changes: +LIDO700A20 TOP
[2021-03-08 21:51] LABS: BASOPHILS ABSOLUTE AUTO 0.04 K/mm3 (0.00-0.23); BASOPHILS PERCENT AUTO 1 % (0-2); EOSINOPHILS ABSOLUTE AUTO 0.17 K/mm3 (0.00-0.68); EOSINOPHILS PERCENT AUTO 3 % (0-6); Hematocrit 40.8 % (37.0-53.0); Hemoglobin 14.2 g/dL (13.5-17.5); IMMATURE GRAN ABSOLUTE AUTO 0.04 K/mm3 (0.00-0.10); IMMATURE GRAN PERCENT AUTO 1 % (0-1); LYMPHOCYTES ABSOLUTE AUTO 0.98 K/mm3 (0.84-5.20); LYMPHOCYTES PERCENT AUTO 16 % (21-46); MONOCYTES ABSOLUTE AUTO 0.52 K/mm3 (0.16-1.47); MONOCYTES PERCENT AUTO 8 % (4-13); Mean Corpuscular HGB 32.9 pg (26.0-34.0); Mean Corpuscular HGB Conc 34.8 g/dL (31.5-36.5); Mean Corpuscular Volume 95 fL (80-100); Mean Platelet Volume 10.1 fL (9.1-12.4); NEUTROPHILS ABSOLUTE AUTO 4.55 K/mm3 (1.96-9.15); NEUTROPHILS PERCENT AUTO 72 % (41-73); Platelet Count 286 K/mm3 (150-400); RDW Coefficient Variation 13.6 % (11.7-14.2); RDW Standard Deviation 48.4 fL (35.1-46.3); Red Blood Cell Count 4.31 M/mm3 (4.30-5.90)
[2021-03-08 22:09] LABS: Alanine Aminotransfer (ALT/SGP 18 U/L (12-78); Albumin, Blood 3.2 g/dL (3.4-5.0); Albumin/Globulin Ratio 0.8 (0.8-1.8); Alk Phos 84 U/L (50-136); Anion Gap 4 mmol/L (6-16); Aspartate Aminotrans (AST/SGOT 26 U/L (12-37); Bilirubin, Total 1.2 mg/dL (0.1-1.0); Blood Urea Nitrogen 19 mg/dL (8-24); Bun/Creatinine Ratio 27.4 (12.0-20.0); CO2, Blood 30 mmol/L (21-32); Calcium, Blood 8.7 mg/dL (8.5-10.1); Chloride, Blood 98 mmol/L (98-108); Creatinine, Blood 0.69 mg/dL (0.60-1.20); Globulin, Blood 4.2 g/dL (2.2-4.0); Glomerular Filtration Rate >60 (60-); Glucose, Blood 117 mg/dL (70-99); Potassium, Blood 3.8 mmol/L (3.5-5.5); Sodium, Blood 132 mmol/L (136-145); Total Protein, Blood 7.4 g/dL (6.4-8.2)
--- NOTE | 2021-03-09 01:37 | NUR ---
RERORT RECEIVED FROM MELINDA AT ED AT 0137. PT TO TRANSFER TO [facility].
--- NOTE | 2021-03-09 04:06 | NUR ---
ARRIVED FROM ED VIA STRETCHER AT 0200 ADMITTED FOR COLITIS. CAME IN AT ED FOR ABD PAIN AND CONSTIPATION FOR 2 WEEKS. HE HAD A MANUAL DISIMPACTION OF HARD STOOL AT ED ON BEDSIDE. PT STS " I FEEL 100% BETTER" DENIES ABD PAIN AND NAUSEA. HE WILL BE UNDER OBSERVATION AFTER FECAL IMPACTION. TOLERATING CLEAR DIET. PT HAS BEEN HYPERTENSIVE BUT TRENDING DOWN. CALLED AND NOTIFIED DR. LAMAS. SUGGEST TO MONITOR BP AND CALL IF IT'S NOT IMPROVING. PT HAD LEAKING LIQUID TO PASTY STOOL WHEN HE CAME IN TO THE UNIT. REPORTS INCONTINENT ON BASELINE. ATTENDS IN PLACE. SCD'S ON BLE. CALL LIGHT WITHIN REACH.
--- NOTE | 2021-03-09 04:38 | NUR ---
SHIFT SUMMARY SEE PREVIOUS NOTE. NO ACUTE CHANGES SINCE PT ARRIVED FROM ED. WILL CONTINUE TO MONITOR PATIENT. PT IS SLEEPING COMFORTABLE IN BED. CALL LIGHT WITHIN REACH. WILL PROVIDE REPORT TO ONCOMING NURSE.
[2021-03-09] MEDS ORDERED: DULCOLAX400 MG/5 M PO (14:58)
--- NOTE | 2021-03-09 15:34 | NUR ---
DISCHARGE SUMMARY PATIENT ALERT WHEN AWAKE AND ORIENTED THROUGHOUT SHIFT. TOLERATING SOFT DIET. DENIES NAUSEA OR ABD PAIN. LOOSE STOOLS. DISCHARGE ORDERS OBTAINED. DISCHARGE EDUCATION GIVEN ON BOWEL CARE MEDS AND FOLLOW UP APPOINTMENTS. IV DC'D WNL. PATIENT LEFT UNIT VIA WHEELCHAIR WITH SPOUSE FOR HOME AT 1530.
--- NOTE | 2021-03-10 08:24 | NUR ---
Update 03/09/21 1115 - Met with patient to discuss discharge plan. Patient's will be driving him home and he will contact her as soon as he is made aware of a discharge time. I scheduled pt. for a follow-up with PCP on 03/14/21 at 1520. Pt. is aware of this appointment and a reminder note was placed with his belongings. Pt. uses [facility] pharmacy and will fern picker any needed prescriptions. Patient concerned with his being overwhelmed at home with daily tasks. It seems that this concern might be adding to his depression, as he appears to feel badly that he is not able to assist her. We discussed possible options for a weekly cleaning service or in home care giving. Pt. stated that they would be interested in discussing this further. I also advised that I will be speaking with home health to determine the date they will be visiting. Order for [facility] placed on 03/06/21. I will be following-up with patient and tomorrow morning to discuss further. Pt. is agreeable to plan. He states the will contact [facility] if any further questions or concerns in the meantime. Pt. discharged home. Concerns: Pt. recently diagnosed with major depressive disorder. Visit with [facility] on 03/06/21. Pt. depressed regarding pain and inability to enjoy life. - Noted by Mariaelena Olivares
== END 2021-03-09 15:28 | disposition home or self-care (01) ==
LOC: ER 20:56 → MEDS 20:57 → SURS 20:57
PROVIDERS: Physician Assistant; ADMIT Family Medicine
DX: K52.89 Other specified noninfective gastroenteritis and colitis (principal); K56.41 Fecal impaction; E87.1 Hypo-osmolality and hyponatremia; I71.4 Abdominal aortic aneurysm, without rupture; J45.909 Unspecified asthma, uncomplicated; F32.9 Major depressive disorder, single episode, unspecified; Z86.73 Personal history of transient ischemic attack (TIA), and cerebral infarction without residual deficits; Z96.611 Presence of right artificial shoulder joint; Z96.641 Presence of right artificial hip joint; Z66 Do not resuscitate
CPT/HCPCS: 36415; 74176; 80053; 85025; 93005; 93010; 99285-25; A9270; G0378; J1650

== ENCOUNTER 2021-03-28 16:57 | Emergency (ER) | payer MEDICARE ==
[~2021-03-28] VITALS: Ht 182.9 cm; Wt 69.8 kg
[~2021-03-28 16:57] MED LIST changes: +DULCOLAX400 MG/5 M PO
[2021-03-28 18:07] LABS: BASOPHILS ABSOLUTE AUTO 0.04 K/mm3 (0.00-0.23); BASOPHILS PERCENT AUTO 1 % (0-2); EOSINOPHILS ABSOLUTE AUTO 0.28 K/mm3 (0.00-0.68); EOSINOPHILS PERCENT AUTO 4 % (0-6); Hematocrit 39.6 % (37.0-53.0); Hemoglobin 13.5 g/dL (13.5-17.5); IMMATURE GRAN ABSOLUTE AUTO 0.04 K/mm3 (0.00-0.10); IMMATURE GRAN PERCENT AUTO 1 % (0-1); LYMPHOCYTES ABSOLUTE AUTO 0.98 K/mm3 (0.84-5.20); LYMPHOCYTES PERCENT AUTO 13 % (21-46); MONOCYTES ABSOLUTE AUTO 0.64 K/mm3 (0.16-1.47); MONOCYTES PERCENT AUTO 8 % (4-13); Mean Corpuscular HGB 33.2 pg (26.0-34.0); Mean Corpuscular HGB Conc 34.1 g/dL (31.5-36.5); Mean Corpuscular Volume 97 fL (80-100); Mean Platelet Volume 9.4 fL (9.1-12.4); NEUTROPHILS PERCENT AUTO 74 % (41-73); Platelet Count 145 K/mm3 (150-400); RDW Coefficient Variation 14.2 % (11.7-14.2); RDW Standard Deviation 51.1 fL (35.1-46.3); Red Blood Cell Count 4.07 M/mm3 (4.30-5.90); White Blood Cell Count 7.58 K/mm3 (4.00-11.30)
[2021-03-28 18:27] LABS: Alanine Aminotransfer (ALT/SGP 15 U/L (12-78); Albumin, Blood 3.4 g/dL (3.4-5.0); Albumin/Globulin Ratio 0.8 (0.8-1.8); Alk Phos 96 U/L (50-136); Anion Gap 4 mmol/L (6-16); Aspartate Aminotrans (AST/SGOT 13 U/L (12-37); Bilirubin, Total 1.1 mg/dL (0.1-1.0); Blood Urea Nitrogen 18 mg/dL (8-24); Bun/Creatinine Ratio 26.1 (12.0-20.0); CO2, Blood 30 mmol/L (21-32); Chloride, Blood 102 mmol/L (98-108); Creatinine, Blood 0.69 mg/dL (0.60-1.20); Glomerular Filtration Rate >60 (60-); Glucose, Blood 133 mg/dL (70-99); Potassium, Blood 3.8 mmol/L (3.5-5.5); Sodium, Blood 136 mmol/L (136-145); Total Protein, Blood 7.4 g/dL (6.4-8.2); Troponin I <0.015 ng/mL (0.000-0.040)
== END 2021-03-28 19:55 | disposition home or self-care (01) ==
LOC: ER 16:57
PROVIDERS: Emergency Medicine
DX: R07.9 Chest pain, unspecified (principal); Z88.6 Allergy status to analgesic agent; Z79.899 Other long term (current) drug therapy; Z87.891 Personal history of nicotine dependence
CPT/HCPCS: 71046; 80053; 84484; 85025; 93005; 93010; 99285-25